=== PATIENT | female | born 1985 | race Caucasian/White ===

== ENCOUNTER 2019-03-31 23:07 | Emergency (ER) | payer OTHER, MEDICAID, SELFPAY ==
[2019-03-31 23:10] VITALS: BP 142/75; PULSE 53; RESP 20; TEMP 36.7; O2SAT 98; BMI 20.7
--- NOTE | 2019-03-31 23:17 | ED_ITS ---
HPI - Abdominal Pain General Chief Complaint: Abdominal Pain Stated Complaint: Abdominal Pain Time Seen by Provider: 03/31/19 23:14 Source: patient and family Mode of arrival: ambulatory Limitations: no limitations History of Present Illness HPI narrative: 33-year-old female nonsmoker with history of kidney stones and ovarian cyst presents with her in the chief complaint of sudden onset left lower quadrant pain that started a few hours ago. She denies any radiation of the pain but states it is made worse with any motion and improves with rest. She has nausea but denies vomiting. She denies any recent injury. She has had no fever or chills. She denies any dysuria, frequency or urgency. She denies any constipation or diarrhea. MD complaint: abdominal pain Onset (ago): hour(s) Pain Consistency: constant Location: LLQ Severity: moderate Quality: cramping, stabbing and aching Radiation: none Migration to: no migration Relieving factors: rest Exacerbating factors: movement Associated symptoms: nausea Related Data Previous Rx's Medication Instructions Recorded hydrocodone-acetaminophen 1 tab PO Q4-6H PRN #10 tab 04/01/19 ketorolac 10 mg PO Q6H PRN #14 tab 04/01/19 ondansetron 4 mg PO TID-QID PRN #10 tab 04/01/19 Allergies Allergy/AdvReac Type Severity Reaction Status Date / Time No Known Drug Allergies Allergy Unverified 02/22/19 14:52 Review of Systems Constitutional Constitutional: Denies chills, Denies fatigue, Denies fever(s), Denies frequent falls, Denies lethargy and Denies weakness Eyes Eyes: Denies change in vision, Denies eye discharge, Denies irritation and Denies loss of vision ENT Ears, Nose, Mouth, and Throat: Denies change in voice, Denies dizziness, Denies neck pain, Denies sore throat and Denies throat swelling Cardiovascular Cardiovascular: Denies chest pain, Denies irregular heart rhythm, Denies lightheadedness, Denies palpitations, Denies dyspnea, Denies dyspnea on exertion and Denies orthopnea Respiratory Respiratory: Denies cough, Denies dyspnea, Denies dyspnea on exertion and Denies wheezing Gastrointestinal Gastrointestinal: Reports abdominal pain, Denies change in bowel habits, Denies diarrhea, Reports nausea and Denies vomiting Genitourinary Genitourinary: Denies hematuria, Denies flank pain, Denies urinary incontinence and Denies urinary urgency Musculoskeletal Musculoskeletal: Denies back pain, Denies muscle weakness, Denies neck pain, Denies numbness and Denies tingling Integumentary/Breasts Skin/Breast: Denies pruritus, Denies erythema, Denies rash and Denies wounds Neurologic Neurologic: Denies behavioral changes, Denies confusion, Denies dizziness, Denies frequent falls, Denies loss of vision, Denies numbness, Denies tingling and Denies weakness Psychiatric Psychiatric: Denies anxiety, Denies behavioral changes, Denies confusion, Denies depression, Denies homicidal ideation and Denies suicidal ideation Endocrine Endocrine: Denies fatigue, Denies flushing and Denies palpitations Hematologic/Lymphatic Hematologic/Lymphatic: Denies easy bruising Allergic/Immunologic Allergic/Immunologic: Denies urticaria, Denies throat swelling and Denies wheezing PFSH Social History Smoking Status: Never smoker second hand exposure: No alcohol intake: current (wine 3 to 4 times a year.) substance use type: does not use Social History Smoking Status: Never smoker second hand exposure: No alcohol intake: current (wine 3 to 4 times a year.) substance use type: does not use Exam Narrative Exam Narrative: GENERAL: [33] year old patient appears stated age. Well-nourishe d, well-developed patient, in mild distress. Obviously uncomfortable, laying on her side and rubbing her flank HEAD: Atraumatic. Normocephalic. EYES: Pupils equal round and reactive. Extraocular motions intact. No scleral icterus. No injection or drainage. ENT: Nose without bleeding, purulent drainage. Throat without erythema, tonsillar hypertrophy or exudate. Airway patent. NECK: Trachea midline. Non tender CARDIOVASCULAR: Regular rate and rhythm without murmurs, gallops, or rubs. RESPIRATORY: Clear to auscultation. Breath sounds equal bilaterally. No wheezes, rales, or rhonchi. GASTROINTESTINAL: Abdomen soft, non-tender, nondistended. EXTREMITIES: No edema or joint tenderness. BACK: Nontender without deformity or crepitance. No flank tenderness. NEURO: AOx3. SKIN: No rash or erythema of visible areas Initial Vital Signs Initial Vital Signs: Vital Signs Temperature 98.1 F 03/31/19 23:10 Pulse Rate 53 L 03/31/19 23:10 Respiratory Rate 20 03/31/19 23:10 Blood Pressure 142/75 H 03/31/19 23:10 Pulse Oximetry 98 03/31/19 23:10 Course Orders Ordered: ED Orders 03/31/19 23:20 Basic Metabolic Panel Stat Complete Blood Count AUTO DIFF Stat 03/31/19 23:25 US pelvic complete Stat 04/01/19 02:15 CT abdomen pelvis w con Stat Discontinued Medications Hydromorphone HCl (Dilaudid) 1 mg IV NOW ONE Stop: 04/01/19 00:09 Last Admin: 04/01/19 00:11 Dose: 1 mg Documented by: GALLITO Hydromorphone HCl (Dilaudid) 1 mg IV NOW ONE Stop: 04/01/19 02:16 Last Admin: 04/01/19 02:20 Dose: 1 mg Documented by: GALLITO Sodium Chloride (Normal Saline 0.9%) 1,000 mls @ 1,000 mls/hr IV BOLUS ONE Stop: 04/01/19 00:24 Last Infusion: 04/01/19 00:38 Dose: 0 mls/hr Documented by: Admin: 03/31/19 23:35 Dose: 1,000 mls/hr Documented by: GALLITO Ketorolac Tromethamine (Toradol) 15 mg IV NOW ONE Stop: 03/31/19 23:26 Last Admin: 03/31/19 23:34 Dose: 15 mg Documented by: GALLITO Ondansetron HCl (Zofran) 4 mg IV NOW ONE Stop: 03/31/19 23:42 Last Admin: 03/31/19 23:43 Dose: 4 mg Documented by: GALLITO Reevaluation(s) Reevaluation #1: Minimal improvement with Toradol, tremendous, near complete resolution with Dilaudid Vital Signs Vital signs: Vital Signs - 8 hr 03/31/19 23:10 04/01/19 02:20 Temperature 98.1 F Pulse Rate 53 L 63 Respiratory Rate 20 Blood Pressure 142/75 H Blood Pressure [Right Arm] 123/55 L Pulse Oximetry 98 98 MDM - Abdominal Pain Lab Data Result diagrams: 03/31/19 23:20 03/31/19 23:20 Labs: Lab Results 03/31/19 03/31/19 Range/Units 23:20 23:20 WBC 8.9 (4.5-11.0) X10^3/uL RBC 4.54 (4.0-5.2) X10^6/uL Hgb 13.4 (12.0-16.0) g/dL Hct 39.3 (36-46) % MCV 86.5 (80-100) fL MCH 29.5 (26-34) PG MCHC 34.1 (30-36) % RDW 12.9 (11.6-14.8) % Plt Count 210 (150-400) X10^3/uL Neut % (Auto) 52.8 (50-75) % Lymph % (Auto) 30.9 (25-40) % [place] % (Auto) 13.2 (3-14) % Eos % (Auto) 2.3 (2-4) % Baso % (Auto) 0.8 (0-2) % Neut # (Auto) 4700 (5799-0935) /uL Lymph # (Auto) 2800 (4562-1064) /uL [place] # (Auto) 1200 H (0-900) /uL Eos # (Auto) 200 (0-450) /uL Baso # (Auto) 100 (0-100) /uL Sodium 137 (137-145) mmol/L Potassium 4.0 (3.4-5.1) mmol/L Chloride 102 (98-107) mmol/L Carbon Dioxide 26 (22-32) mmol/L BUN 14 (7-17) mg/dL Creatinine 0.80 (0.52-1.04) mg/dL Estimated GFR > 60.0 (>60) mL/min BUN/Creatinine Ratio 17.5 (6-22) Glucose 109 H (70-100) mg/dL Calcium 9.5 (8.4-10.2) mg/dL Point of care testing: Point of Care Testing Test Results Negative Urine Dip Bedside Urine Glucose Negative Bedside Urine Bilirubin - Negative Bedside Urine Ketone +++ 80 Urine Specific [place] 1.025 Bedside Urine Occult Blood - Negative Bedside Urine pH 6.0 Bedside Urine Protein - Negative Bedside Urine Urobilinogen - Negative Bedside Urine Nitrite - Negative Bedside Urine Leukocytes - Negative Esterase Imaging Data US - abdomen: Attestation: I personally reviewed and interpreted this imaging study as follows: Radiologist's impression: possible R side ovarian cyst CT scan - abdomen: Radiologist's impression: Prominent veins in the lower pelvis long uterus and adnexa suggesting pelvic congestion syndrome Discharge Plan Departure Patient Disposition: Home Clinical Impression: Pelvic pain, 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 Let them know you were seen in the Emergency Department and that we ask that you be seen in follow up *Return to ER if you should have any new, worsening or concerning symptoms, such as [ ] Prescriptions: New hydrocodone-acetaminophen 5-325 mg tablet 1 tab PO Q4-6H PRN (Reason: pain) Qty: 10 RF: 0 ketorolac 10 mg tablet 10 mg PO Q6H PRN (Reason: pain) Qty: 14 RF: 0 ondansetron 4 mg tablet,disintegrating 4 mg PO TID-QID PRN (Reason: nausea and vomiting) Qty: 10 RF: 0 Referrals: Leeanna Em PA-C [Primary Care Provider] - Leonard Tellez MD [Physician] -
--- NOTE | 2019-03-31 23:25 | DI.US.S_ITS ---
PROCEDURE: US PELVIC COMPLETE INDICATIONS: LEFT LOWER QUADRANT PAIN TECHNIQUE: Real-time scanning was performed of the pelvic organs, with image documentation. Additional endovaginal scanning was necessary due to incomplete visualization of the adnexal and endometrial structures by transabdominal scanning. COMPARISON: None. FINDINGS: Transabdominal scanning: Limited scanning through the kidneys shows no hydronephrosis. No pathologic free abdominal or pelvic fluid. Endovaginal scanning: Uterus: Uterus is normal in size at 7.2 x 4.6 x 3.2 cm. The endometrium measures 9 mm in combined thickness. No myometrial lesion is evident. No significant fluid is seen within the endometrium. The cervix is within normal limits. Ovaries: The right ovary is mildly enlarged and measures 3.6 x 3.0 x 2.7 cm. There is a thickwalled irregular cystic structure containing low level internal echoes that measures up to approximately 2.2 cm within the right ovary. Mild increased peripheral vascularity is present. Blood flow is demonstrated to the right ovary, which demonstrates a normal arterial Doppler waveforms. The left ovary is within normal limits and measures 2.2 x 1.8 x 1.8 cm. No cystic or solid left ovarian abnormality is appreciated. Blood flow is demonstrated to the left ovary. Small follicles of the left ovary are present. IMPRESSION: 1. Collapsing small hemorrhagic right ovarian cyst. 2. Unremarkable left ovary and uterus. Note: The preliminary report provided by [facility]. is concordant with the final report. Dictated by: Yunior Howe M.D. on 04/01/2019 at 7:18 Approved by: Yunior Howe M.D. on 04/01/2019 at 7:21
[2019-03-31 23:33] LABS: Add Manual Diff / Slide Review NO; Basophils Absolute Auto 100 /uL (0-100); Basophils Percent Auto 0.8 % (0-2); Eosinophils Absolute Auto 200 /uL (0-450); Eosinophils Percent Auto 2.3 % (2-4); Hematocrit 39.3 % (36-46); Hemoglobin 13.4 g/dL (12.0-16.0); Lymphocytes Absolute Auto 2800 /uL (1100-4500); Lymphocytes Percent Auto 30.9 % (25-40); Mean Corpuscular HGB Conc 34.1 % (30-36); Mean Corpuscular Hemoglobin 29.5 PG (26-34); Mean Corpuscular Volume 86.5 fL (80-100); Monocytes Absolute Auto 1200 /uL (0-900); Monocytes Percent Auto 13.2 % (3-14); Neutrophils Absolute Auto 4700 /uL (1500-7000); Neutrophils Percent Auto 52.8 % (50-75); Platelet Count 210 X10^3/uL (150-400); Red Blood Cell Count 4.54 X10^6/uL (4.0-5.2); Red Cell Distribution Width 12.9 % (11.6-14.8); White Blood Cell Count 8.9 X10^3/uL (4.5-11.0)
[2019-03-31] MEDS: KETOROLAC 60 MG/2 ML VIAL 15 MG IV (23:34)
[2019-03-31] MEDS: SODIUM CHLORIDE 0.9% 1,000 ML 1000 ML IV (23:35)
[2019-03-31 23:42] LABS: BUN Creatinine Ratio 17.5 (6-22); Blood Urea Nitrogen 14 mg/dL (7-17); Calcium 9.5 mg/dL (8.4-10.2); Carbon Dioxide 26 mmol/L (22-32); Chloride 102 mmol/L (98-107); Estimated Glomerular Filt Rate > 60.0 mL/min (>60); Glucose 109 mg/dL (70-100); HEMOLYSIS < 15 (0-50); Sodium 137 mmol/L (137-145)
[2019-03-31] MEDS: ONDANSETRON 4 MG/2 ML INJ IV (23:43)
[2019-04-01] MEDS: HYDROMORPHONE 1 MG INJ IV ×2 (00:11→02:20)
--- NOTE | 2019-04-01 02:15 | DI.CT.S_ITS ---
PROCEDURE: CT ABDOMEN PELVIS W CON INDICATIONS: severe left lower quadrant pain TECHNIQUE: After the administration of oral and intravenous contrast, 5 mm thick sections acquired from the diaphragms to the symphysis. 5 mm thick coronal and sagittal reformats were performed. For radiation dose reduction, the following was used: automated exposure control, adjustment of mA and/or kV according to patient size. COMPARISON: [facility], US, US PELVIC COMPLETE, 04/01/2019, 0:26. [facility], CT, KIDNEY/ URETER/BLADDER, 04/19/2015, 16:45. FINDINGS: Image quality: Diagnostic. ABDOMEN: Lung bases: Lung bases are clear. Heart size is normal. Solid organs: Liver is normal in size and enhancement. Gallbladder is not enlarged or inflamed. Biliary system is non-dilated. Pancreas enhances normally. Spleen is normal in size and enhancement. No adrenal nodules. Kidneys are normal in size and enhancement, without hydronephrosis. Peritoneum and bowel: The stomach is decompressed. The small bowel loops are not significantly dilated. However, there are patchy areas of wall thickening involving the jejunum. Fluid is seen within the ileum. Diffuse small bowel wall enhancement is identified The appendix is well-visualized and normal in size without surrounding inflammation (image 52, series 2). There is a large amount of stool identified throughout the colon that is more prominent through the proximal colon. The portion of the sigmoid colon is noted to be decompressed Nodes and vessels: No retroperitoneal or mesenteric adenopathy. Aorta and inferior vena cava are normal in caliber. Bones: No acute fracture or suspicious osseous lesion is evident. There may be mild degenerative changes of the facet joints at the lumbosacral junction. PELVIS: Soft tissues: Bladder wall thickness is normal. The uterus and ovaries do not appear to be enlarged. No inguinal hernias or adenopathy. No free fluid or loculated fluid collection is evident. Bones: No suspicious bony lesions. No acute pelvic fracture is evident. IMPRESSION: 1. Wall enhancement of the small bowel with patchy areas of wall thickening is nonspecific, but may be seen in the setting of enteritis and clinical correlation is recommended. 2. Large amount of stool within the colon is suggestive of constipation. The sigmoid colon appears decompressed, which may be related to lack of intraluminal stool. However, a sigmoid lesion or potentially sigmoid volvulus is difficult to exclude. If the patient's symptoms persist, please consider followup CT imaging with rectal contrast. Dictated by: Yunior Howe M.D. on 04/01/2019 at 8:28 Approved by: Yunior Howe M.D. on 04/01/2019 at 8:38
[2019-04-01 02:20] VITALS: BP 123/55; PULSE 63; O2SAT 98
[2019-04-01] MEDS: HYDROCODONE/ACET 5/325 PREPACK 1 BOTTLE MISC (03:58)
[2019-04-01 03:59] VITALS: BP 111/62; PULSE 50; RESP 16; O2SAT 98
[2019-04-01] MEDS: ONDANSETRON 4 MG ODT PREPACK 1 BOTTLE MISC (03:59)
== END 2019-04-01 03:59 | disposition home or self-care (01) ==
PROVIDERS: Emergency Provider Emergency Medicine; PCP Physician Assistant
DX: R10.2 Pelvic and perineal pain (principal); N94.89 Other specified conditions associated with female genital organs and menstrual cycle
CPT/HCPCS: 36591; 74177; 76830; 76856; 80048; 81003; 81025; 85025; 96361; 96374; 96375; 96376; 99283; 99285; J1170; J1885; J2405; Q9967

== ENCOUNTER → 2019-04-07 14:48 | Outpatient (CLI) | payer OTHER, MEDICAID, SELFPAY ==
[2019-04-07 17:06] LABS: Hepatitis B Surface Antigen NEGATIVE s/c (NEGATIVE)
[2019-04-07 17:20] LABS: HIV 1 & 2 Ab/Ag 4th Gen Combo NEGATIVE (NEGATIVE); Hep C Virus Ab w/Reflex Quant NEGATIVE s/c (NEGATIVE)
[2019-04-07 18:27] LABS: Urine N gonorrhoeae NOT DETECTED
[2019-04-07 18:29] LABS: Urine Chlamydia NOT DETECTED
[2019-04-11 14:33] LABS: HSV 2 IgM Screen Positive (Negative)
[2019-04-11 16:01] LABS: RPR Screen NONREACTIVE
[2019-04-11 16:19] LABS: HSV 1 IgM Screen Positive (Negative)
== END ==
PROVIDERS: PCP Physician Assistant; Visit Provider Nurse Practitioner Family
DX: Z20.2 Contact with and (suspected) exposure to infections with a predominantly sexual mode of transmission (principal)
CPT/HCPCS: 36415; 86592; 86695; 86696; 86803; 87210; 87340; 87389; 87491; 87591

== ENCOUNTER → 2019-09-20 13:12 | Outpatient (CLI) | payer OTHER, MEDICAID, SELFPAY ==
[2019-09-20 14:03] LABS: Appearance Urine UA CLEAR; Bilirubin Urine UA NEGATIVE (NEGATIVE); Color Urine UA YELLOW; Glucose Urine UA NEGATIVE (Negative); Ketones Urine UA NEGATIVE (NEGATIVE); Leukocyte Esterase Urine UA 1+ (NEGATIVE); Nitrite Urine UA NEGATIVE (Negative); Occult Blood Urine UA NEGATIVE (Negative); Protein Urine UA NEGATIVE (Negative); Urobilinogen Urine UA 0.2 E.U./dL (0.2)
[2019-09-20 14:28] LABS: Add Manual Diff / Slide Review NO; Basophils Absolute Auto 0 /uL (0-100); Basophils Percent Auto 0.4 % (0-2); Eosinophils Absolute Auto 200 /uL (0-450); Eosinophils Percent Auto 1.5 % (2-4); Hematocrit 38.8 % (36-46); Hemoglobin 13.1 g/dL (12.0-16.0); Lymphocytes Absolute Auto 2200 /uL (1100-4500); Lymphocytes Percent Auto 19.3 % (25-40); Mean Corpuscular HGB Conc 33.9 % (30-36); Mean Corpuscular Volume 88.3 fL (80-100); Monocytes Absolute Auto 800 /uL (0-900); Monocytes Percent Auto 7.2 % (3-14); Neutrophils Absolute Auto 8100 /uL (1500-7000); Neutrophils Percent Auto 71.6 % (50-75); Platelet Count 238 X10^3/uL (150-400); Red Blood Cell Count 4.39 X10^6/uL (4.0-5.2); Red Cell Distribution Width 13.3 % (11.6-14.8); White Blood Cell Count 11.3 X10^3/uL (4.5-11.0)
[2019-09-20 14:34] LABS: Bacteria Urine Moderate (10-30); RBC Urine 0-1/HPF (0-5/HPF); Squamous Epithelial Cell Urine 0-1 /HPF (0-5/HPF); WBC Urine 1-5/HPF (0-5/HPF); pH Urine UA 5.5 (4.5-8.0)
[2019-09-20 16:38] LABS: Hepatitis B Surface Antigen NEGATIVE s/c (NEGATIVE); Rubella Antibody IgG 12.4 IU/mL (>15)
[2019-09-20 16:54] LABS: HIV 1 & 2 Ab/Ag 4th Gen Combo NEGATIVE (NEGATIVE); Hep C Virus Ab w/Reflex Quant NEGATIVE s/c (NEGATIVE)
[2019-09-22 20:36] LABS: RPR Screen Nonreactive (Nonreactive)
== END ==
PROVIDERS: PCP Family Medicine; Referring Provider Obstetrics & Gynecology; Visit Provider Obstetrics & Gynecology
DX: Z34.81 Encounter for supervision of other normal pregnancy, first trimester (principal)
CPT/HCPCS: 36415; 80055; 81003; 81015; 86787; 86803; 86850; 86900; 86901; 87077; 87086; 87389

== ENCOUNTER → 2019-10-25 12:20 | Outpatient (CLI) | payer OTHER, MEDICAID, SELFPAY | PROVIDERS: PCP Family Medicine; Referring Provider Obstetrics & Gynecology; Visit Provider Obstetrics & Gynecology | DX: O09.521 Supervision of elderly multigravida, first trimester (principal) | CPT/HCPCS: 36415; 81420 ==

== ENCOUNTER → 2019-12-22 11:25 | Outpatient (CLI) | payer OTHER, MEDICAID, SELFPAY ==
--- NOTE | 2019-12-22 11:26 | DI.US.S_ITS ---
PROCEDURE: US OB >= 14 WEEKS FETUS INDICATIONS: 20 WEEK ANATOMY SCAN OUTSIDE/PRIOR DATING DATA: Last menstrual period (LMP): 07/30/19. LMP-based estimated date of delivery (MIRTA): 05/05/20. First dating scan (date and location): 09/29/19. Estimated date of delivery (MIRTA) from first dating scan: 05/04/20. TECHNIQUE: Real-time scanning was performed of the fetus, with image documentation and biometric measurements. Endovaginal scanning: Not needed COMPARISON: [facility], , OB <= 14 WEEKS FETUS, 09/29/2019, 12:08. [facility], , OB >= 14 WEEKS FETUS, 12/06/2019, 11:41. FINDINGS: General: A single living intrauterine gestation is present. Presentation: Breech. Placenta: Placental position is anterior, without previa. Amniotic fluid index: 16.2 cm, normal range is 5-24 cm. heart rate: 141 beats per minute. Maternal cervical canal: 3.1 cm long. Normal lower limit is 2.5 cm. biometrics: Biparietal diameter: 4.8 cm, 20 weeks 3 days Head circumference: 17.8 cm, 20 weeks 2 days Abdominal circumference: 14.7 cm, 20 weeks 0 days Femur length: 3.2 cm, 20 weeks 0 days Estimated gestational age from initial scan: 20 weeks 6 days Composite gestational age from present scan: 20 weeks 1 day Estimated weight and percentile: 330 g, 12 percentile Measurement variability for biometric dating: +/- 7 days from 14 weeks to 15 weeks 6 days gestation, +/- 10 days from 16 weeks to 21 weeks 6 days gestation, +/- 2 weeks from 22 weeks to 27 weeks 6 days gestation, +/- 3 weeks for 28 weeks gestation or later. weight reference: 4500 g or EFW >90/95% is considered macrosomia or large for gestational age. EFW <10% is small for gestational age. EFW 5% or less is considered intra-uterine growth restriction. Anatomic survey: Neuro: Ventricles are non-dilated at less than 10 mm. Cisterna magna is normal at 3-11 mm. Cerebellum is normal in size and morphology. Nuchal skin fold: Normal at less than 6 mm between 14-21 weeks gestational age. Face: Nose and lips, facial profile are normal. Spine: No evidence for spina bifida. Heart: 4-chambered heart is present, with normal ventricular outflow tracts. Diaphragm: Diaphragm is intact. Stomach: Left-sided stomach is present. Kidneys: No hydronephrosis. Normal is less than 5 mm in 2nd trimester, less than 7 mm in 3rd trimester. Cord: 3-vessel cord has orthotopic insertion. Bladder: Normal in size. Extremities: All 4 extremities identified. IMPRESSION: Appropriate interval growth, no anomaly seen. The delivery date is projected to be centered on 05/04/20. Breech presentation at this time. Dictated by: Santiago Sarmiento M.D. on 12/22/2019 at 14:47 Approved by: Santiago Sarmiento M.D. on 12/22/2019 at 14:50
== END ==
PROVIDERS: PCP Family Medicine; Referring Provider Obstetrics & Gynecology; Visit Provider Obstetrics & Gynecology
DX: Z34.82 Encounter for supervision of other normal pregnancy, second trimester (principal); Z3A.20 20 weeks gestation of pregnancy
CPT/HCPCS: 76811

== ENCOUNTER → 2020-01-03 10:58 | Outpatient (CLI) | payer OTHER, MEDICAID, SELFPAY ==
[2020-01-04 06:10] LABS: Candida species Positive (Negative); Gardnerella vaginalis Positive (Negative); Trichomoas vaginalis Negative (Negative)
== END ==
PROVIDERS: PCP Family Medicine; Visit Provider Obstetrics & Gynecology
DX: O26.899 Other specified pregnancy related conditions, unspecified trimester (principal); N89.8 Other specified noninflammatory disorders of vagina; Z3A.22 22 weeks gestation of pregnancy
CPT/HCPCS: 87480; 87510; 87660

== ENCOUNTER → 2020-01-22 14:41 | Outpatient (CLI) | payer OTHER, MEDICAID, SELFPAY ==
--- NOTE | 2020-01-22 14:43 | DI.US.S_ITS ---
PROCEDURE: US OB LIMITED INDICATIONS: CERVICAL LENGTH OUTSIDE/PRIOR DATING DATA: Last menstrual period (LMP): 07/30/19. LMP-based estimated date of delivery (MIRAT): 05/05/20. First dating scan (date and location): 09/29/19. Estimated date of delivery (MIRTA) from first dating scan: 05/04/20. TECHNIQUE: Real-time scanning was performed of the fetus, with image documentation and biometric measurements. Endovaginal scanning: No COMPARISON: [facility], OB >= 14 WEEKS FETUS, 12/22/2019, 11:38. FINDINGS: General: A single living intrauterine gestation is present. Presentation: Breech Placenta: Placental position is anterior, without previa. Amniotic fluid index: 13.8 cm cm, normal range is 5-24 cm. heart rate: 131 beats per minute. Maternal cervical canal: 3.6 cm long. Normal lower limit is 2.5 cm. IMPRESSION: Single living IUP redemonstrated and cervical length is normal at 3.6 cm. Dictated by: Tristen Dean [facility] Interpreted: Bri Corral MD on 01/22/2020 at 15:26 Approved by: Bri Corral M.D. on 01/22/2020 at 17:44
== END ==
PROVIDERS: PCP Family Medicine; Referring Provider Obstetrics & Gynecology; Visit Provider Obstetrics & Gynecology
DX: Z36.86 Encounter for antenatal screening for cervical length (principal); Z3A.25 25 weeks gestation of pregnancy
CPT/HCPCS: 76815

== ENCOUNTER → 2020-02-07 10:31 | Outpatient (CLI) | payer OTHER, MEDICAID, SELFPAY ==
[2020-02-07 12:27] LABS: GTT (PREG) 1 Hour PP 50gm Dose 86 mg/dL (76-139)
[2020-02-07 12:30] LABS: Hematocrit 36.6 % (36-46); Hemoglobin 12.7 g/dL (12.0-16.0)
== END ==
PROVIDERS: PCP Family Medicine; Referring Provider Obstetrics & Gynecology; Visit Provider Obstetrics & Gynecology
DX: Z34.82 Encounter for supervision of other normal pregnancy, second trimester (principal); Z3A.22 22 weeks gestation of pregnancy
CPT/HCPCS: 82950; 85014; 85018

== ENCOUNTER 2020-03-05 17:50 | Outpatient (CLI) | payer OTHER, MEDICAID, SELFPAY ==
[2020-03-05 18:49] LABS: Bacteria Urine None Seen
[2020-03-05 18:50] LABS: Appearance Urine UA CLEAR; Bilirubin Urine UA NEGATIVE (NEGATIVE); Color Urine UA YELLOW; Glucose Urine UA NEGATIVE (Negative); Ketones Urine UA NEGATIVE (NEGATIVE); Leukocyte Esterase Urine UA NEGATIVE (NEGATIVE); Nitrite Urine UA NEGATIVE (Negative); Occult Blood Urine UA NEGATIVE (Negative); Protein Urine UA NEGATIVE (Negative); Specific Gravity Urine UA <=1.005 (1.000-1.035); Urobilinogen Urine UA 0.2 E.U./dL (0.2)
[2020-03-05 18:57] LABS: Culture Indicated Urine Cult Not Indicated; RBC Urine 0-1/HPF (0-5/HPF); Squamous Epithelial Cell Urine 0-1 /HPF (0-5/HPF); WBC Urine 0-1/HPF (0-5/HPF)
== END 2020-03-05 18:45 | disposition home or self-care (01) ==
LOC: LABOR 18:36 → OB 03-06 16:20
PROVIDERS: PCP Family Medicine; Referring Provider Obstetrics & Gynecology; Visit Provider Obstetrics & Gynecology
DX: O09.523 Supervision of elderly multigravida, third trimester (principal); N89.8 Other specified noninflammatory disorders of vagina; Z3A.31 31 weeks gestation of pregnancy
CPT/HCPCS: 59025; 81001; 84112; G0378; G0379

== ENCOUNTER → 2020-03-11 11:58 | Outpatient (CLI) | payer OTHER, MEDICAID, SELFPAY ==
[2020-03-13 07:13] LABS: Candida species Negative (Negative); Gardnerella vaginalis Negative (Negative); Trichomoas vaginalis Negative (Negative)
== END ==
PROVIDERS: PCP Family Medicine; Visit Provider Obstetrics & Gynecology
DX: O26.899 Other specified pregnancy related conditions, unspecified trimester (principal); N89.8 Other specified noninflammatory disorders of vagina; Z3A.32 32 weeks gestation of pregnancy
CPT/HCPCS: 87480; 87510; 87660

== ENCOUNTER → 2020-04-11 15:47 | Outpatient (ROUT) | payer OTHER, MEDICAID, SELFPAY | PROVIDERS: PCP Family Medicine; Visit Provider Nurse Practitioner Obstetrics & Gynecology | DX: Z34.90 Encounter for supervision of normal pregnancy, unspecified, unspecified trimester (principal); Z36.85 Encounter for antenatal screening for Streptococcus B; Z3A.36 36 weeks gestation of pregnancy | CPT/HCPCS: 87081 ==

== ENCOUNTER 2020-04-14 08:50 | Outpatient (CLI) | payer OTHER, MEDICAID, SELFPAY ==
--- NOTE | 2020-04-14 09:03 | P.TNLD_ITS ---
Visit Information Visit Information Date of evaluation: 04/14/20 Primary OB Provider: Magdalene Bro On-call OB Provider: Kitty Hu Reason for Evaluation: Yes rupture of membranes Comments/Additional reasons for admission: 34YO @37wks by early US presents for evaluation of PROM. Copious amounts of clear fluid has been draining since 8am. +FM. Has only felt 2, mild contractions since water broke. No vaginal bleeding. Uncomplicated PN care w/ CNM, transferred into [facility] @ 34wks from [facility]. Desires low intervention . 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) Pelvic somatic dysfunction (Acute) Segmental and somatic dysfunction of lower extremity (Acute) Segmental and somatic dysfunction of lumbar region (Acute) Segmental and somatic dysfunction of sacral region (Acute) Short leg syndrome, left, acquired (Acute) (spontaneous vaginal delivery) (Acute) Surgical History [place] teeth extracted (Acute) Family History Mother Sarcoidosis Father Unknown whether patient has any health problems Grandfather Menieres disease Pituitary tumor Grandmother Skin cancer (melanoma) Family/Other Skin cancer (melanoma) Brother Anxiety Social History marital status: unmarried,single education level: college occupational status: employed current occupational exposures/hazards: No special kirill needs: No Smoking Status: Never smoker second hand exposure: No alcohol intake: current substance use type: does not use Review of Systems Review of Systems ROS: Yes All systems reviewed with the patient and are negative except as otherwise documented Exam Vital Signs (past 8 hours): see above OB/External & Speculum: deferred Presentation: vertex Estimated Weight (lbs): 5 Amniotic Fluid: clear Evaluation Evaluation Baseline heart rate: 135 Variability: Average (6-10) monitor accelerations: Present monitor decelerations: Absent Contraction Frequency (minutes): 6 Uterine Contraction Intensity: Mild Category of Tracing: Reactive Comments: CE deferred as patient is not bruce uncomfortably Diagnosis, Plan/Disposition Final Diagnosis (1) Rubella non-immune status, antepartum: Status: Acute (2) HSV-2 infection: Status: Acute Problem details: Tested positive on 04/07/19 (3) Premature rupture of membranes: Status: Acute Problem details: Counseled on options for active vs expectant management of PROM. Pt elects expectant management. Counseled on warning sx to return. pt unsure if she will return at 12 or 24 hours, will let me know. (4) 37 weeks gestation of : Status: Acute
[2020-04-14 09:46] LABS: COVID19 -Nasal RAPID Negative (Negative)
== END 2020-04-14 10:05 | disposition home or self-care (01) ==
LOC: OB 04-16 15:04
PROVIDERS: PCP Family Medicine; Referring Provider Nurse Practitioner Obstetrics & Gynecology; Visit Provider Nurse Practitioner Obstetrics & Gynecology
DX: O42.92 Full-term premature rupture of membranes, unspecified as to length of time between rupture and onset of labor (principal); O09.523 Supervision of elderly multigravida, third trimester; O98.513 Other viral diseases complicating pregnancy, third trimester; Z3A.37 37 weeks gestation of pregnancy
CPT/HCPCS: 59025; 87635; G0378; G0379

== ENCOUNTER 2020-04-14 19:09 | Inpatient (IN) | payer OTHER, MEDICAID, SELFPAY ==
--- NOTE | 2020-04-14 19:19 | PM.OBHP.1 ---
OB HPI Date/Time Date of admission: 04/14/20 Date Patient Seen: 04/14/20 Time Patient Seen: 18:55 History of Present Condition Chief complaint: EVAL OF LABOR : 2 Para: 1 Estimated Date of Delivery: 05/05/20 Estimated Gestational Age (weeks): 37.0 Narrative: Antonella Paulson is a 34 year old female @37wks by early US. PROM, clear fluid, occurred @ 0800. Patient was evaluated and chose elective management this morning and went back home. Contractions slowly progressed in frequency and intensity, breathing through them since 1600. History of Present care: good care and pounds weight gain (29) Dating criteria: based on 1st trimester US only Ultrasounds: normal mid trimester US Obstetrical complications: none Medical complications: none Preadmission Labs Blood type: O (+) positive -: Antibody screen: negative, GBS status: negative, HBsAG: negative, HSV 1: positive, HSV 2: positive and RPR/VDLR: negative -: Chlamydia screen: not detected and Gonorrhea screen: not detected -: Rubella: equivocal HCT: 36.6 HCAB: negative 1 hr GTT: 86 Prior (ies) History: 07/28/14-NSVB @40.1wks, 1st degree epis, male, 7#3oz, epidural Evaluation Evaluation Baseline heart rate: 135 Variability: Moderate (11-25) monitor accelerations: Present monitor decelerations: Variable (single) Contraction Frequency (minutes): 4 Uterine Contraction Intensity: Moderate Category of Tracing: Reactive Cervical dilation (cm): 5 Cervical effacement (%): 90 station: -1 [facility] Medical History Closed fracture of distal phalanx of left little finger (Acute) Depression (Acute) 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) Pelvic somatic dysfunction (Acute) Segmental and somatic dysfunction of lower extremity (Acute) Segmental and somatic dysfunction of lumbar region (Acute) Segmental and somatic dysfunction of sacral region (Acute) Short leg syndrome, left, acquired (Acute) (spontaneous vaginal delivery) (Acute) Surgical History [place] teeth extracted (Acute) Family History Mother Sarcoidosis Father Unknown whether patient has any health problems Grandfather Menieres disease Pituitary tumor Grandmother Skin cancer (melanoma) Family/Other Skin cancer (melanoma) Brother Anxiety Social History marital status: unmarried,single education level: college occupational status: employed current occupational exposures/hazards: No special kriill needs: No Smoking Status: Never smoker second hand exposure: No alcohol intake: current substance use type: does not use Meds Home Medications and Allergies Home Medications Medication Instructions Recorded Confirmed Type valacyclovir 1 gram tablet 2,000 mg PO BID #4 tab 04/07/19 02/27/20 Rx prenat.vits,tobias,ifs-rmkv-ejnhm 1 tab PO DAILY 09/20/19 02/27/20 History krill oil 500 mg capsule mg PO 10/05/19 02/27/20 History lactobacillus combination no.8 3 3,000 mmu cells PO DAILY 10/05/19 02/27/20 History billion cell capsule ondansetron 4 mg disintegrating 4 mg PO Q6H PRN #20 tab 10/16/19 02/27/20 Rx tablet Allergies Allergy/AdvReac Type Severity Reaction Status Date / Time No Known Drug Allergies Allergy Verified 02/27/20 15:53 Review of Systems Review of Systems ROS: Yes All systems reviewed with the patient and are negative except as otherwise documented Exam Vital Signs (past 8 hours): BP 122/79, HR 65bpm, T36.3C Temporal Assessment and Plan Assessment and Plan Assessment and Plan narrative: Term multipara @ 37wks, Active labor, HSV2 on prophylaxis, GBS neg, Cat I FHR P: Admit, routine labor orders w/ SL IV, CBC & T&S. Labor support PRN. May switch to intermittent auscultation. Reassess in 4 hours or sooner, PRN.
[2020-04-14 20:28] LABS: Add Manual Diff / Slide Review NO; Basophils Absolute Auto 100 /uL (0-100); Basophils Percent Auto 0.9 % (0-2); Eosinophils Absolute Auto 100 /uL (0-450); Eosinophils Percent Auto 0.8 % (2-4); Hematocrit 41.6 % (36-46); Hemoglobin 14.3 g/dL (12.0-16.0); Lymphocytes Absolute Auto 2600 /uL (1100-4500); Lymphocytes Percent Auto 19.2 % (25-40); Mean Corpuscular HGB Conc 34.4 % (30-36); Mean Corpuscular Hemoglobin 30.4 PG (26-34); Mean Corpuscular Volume 88.4 fL (80-100); Monocytes Absolute Auto 1000 /uL (0-900); Monocytes Percent Auto 7.1 % (3-14); Neutrophils Absolute Auto 9900 /uL (1500-7000); Platelet Count 151 X10^3/uL (150-400); Red Blood Cell Count 4.71 X10^6/uL (4.0-5.2); Red Cell Distribution Width 12.7 % (11.6-14.8); White Blood Cell Count 13.7 X10^3/uL (4.5-11.0)
--- NOTE | 2020-04-14 23:02 | PM.OBPNLAB ---
Date/Time Date Patient Seen: 04/14/20 Time Patient Seen: 23:00 Pain Control Pain control: other Comments: Patient is breathing through and moaning with contractions. Has been coping well up until now, stating she's not sure she can do this, but not requesting interventions. VS: BP 122/58, [id number], RR18/min, T36.3C Temporal Pelvic Exam Dilation (cm): 7 Effacement (%): 90 station: 0 Amniotic membrane status: Leaking Contractions Contractions on admission: regular Monitor mode: Palpation Pitocin rate (mU/min): 0 Contraction frequency (min): 4 Contraction duration (min): 1 Contraction pattern: Regular Contraction intensity: Strong/Firm Status status: Category l Heart Rate Baseline: 135 Comments: FHR has been reassuring by intermittent auscultation, regular rate without decreases. Assessment and Plan Assessment: active labor Plan: continuous present management Comments: Continuous labor support. reassess in 2-4 hours or sooner, PRN. Anticipate NSVB.
--- NOTE | 2020-04-15 00:15 | PM.OBPRVD ---
Events: Premature Rupture of Membrane (ROM <16 hours) Labor & Delivery Delivery date: 04/15/20 Intrapartal events: None Cervical ripening method: none Induction method: none Delivery monitor: external FHT and external uterine Route of delivery: L&D Laceration Description: Vaginal - 1st Degree Delivery repair: chromic (4.0) Estimated blood loss (mL): 50 Anesthesia type: None Narrative: Patient requested epidural shortly after last exam. Patient began to feel spontaneous urge to push during IV placement and was when anesthesia arrived. NSVB of a vigorous baby girl in NALDO position w/ a single loose NC and true know in the cord. The shoulders delivered without additional maneuvers. [place] was placed on maternal abdomen for drying and skin to skin. After cessation of pulsation, the cord was double clamped by CNM and cut by FOB. 30 units of pitocin in 500mL LR was started at 300mL/hr for AMTSL. Hospital cord blood hold sample was collected. Gentle cord traction led to spontaneous, Schultze delivery of an apparently intact placenta, membranes and 3VC. Fundus immediately firm and bleeding minimal. A small 1st degree vaginal laceration was repaired w/ 4.0 chromic in the usual fashion, under 1% lidocaine local anesthesia for good approximation and hemostasis. QBL 50mL. Both mother and baby stable and skin to skin as I left the room. [place] Baby 1: gender: Female Presentation: vertex Placenta delivery description: Spontaneous cord vessel description: Loose score (1 min): 8 score (5 min): 8 Plan for aftercare: Routine PP orders. Anticipate d/c to home in 18-24 hours.
[2020-04-15] MEDS: KETOROLAC 30 MG/ML VIAL IV (01:09)
[2020-04-15] MEDS: ACETAMINOPHEN 325 MG TABLET 650 MG PO ×2 (01:10→17:50)
[2020-04-15] MEDS: OXYCODONE IR 5 MG TABLET PO ×2 (03:02→06:53)
[2020-04-15 05:51] VITALS: BP 135/50
[2020-04-15] MEDS: IBUPROFEN 600 MG TABLET PO ×2 (07:46→13:22)
[2020-04-15] MEDS: DOCUSATE 100 MG CAPSULE PO (07:47)
[2020-04-15] MEDS: PRENATAL VIT,CALC/IRON/FOLIC 1 TABLET 1 TAB PO (07:47)
[2020-04-15 11:46] VITALS: BP 119/71; PULSE 64; RESP 16; TEMP 36.6
--- NOTE | 2020-04-15 11:52 | PM.OBDS.1 ---
Discharge Providers Provider Date of admission: 04/14/20 19:09 Discharge Date: 04/15/20 Primary care physician: Austin Lee DO Consults: 04/16/20 00:13 Consult to Edi Coordinator Routine Comment: Discharge provider: Magdalene Bro CNM Summary Discharge Diagnosis (1) First degree perineal laceration during delivery: Status: Acute Problem Details: Patient sitting up in bed, feeling well, eager for discharge to home. Voiding and ambulating independently. Tolerating general diet. Pain now well controlled w/ PO meds, has needed oxycodone. Confidently . Partner is present and supportive. Time Spent with Patient Time attestation: Total time spent providing and/or coordinating discharge services: Objective Labs Result Diagrams: 04/14/20 20:00 Labs: Laboratory Results - last 24 hr 04/14/20 04/14/20 20:00 20:00 WBC 13.7 H RBC 4.71 Hgb 14.3 Hct 41.6 MCV 88.4 MCH 30.4 MCHC 34.4 RDW 12.7 Plt Count 151 Neut % (Auto) 72.0 Lymph % (Auto) 19.2 L [place] % (Auto) 7.1 Eos % (Auto) 0.8 L Baso % (Auto) 0.9 Neut # (Auto) 9900 H Lymph # (Auto) 2600 [place] # (Auto) 1000 H Eos # (Auto) 100 Baso # (Auto) 100 Blood Type O Positive Antibody Screen Negative Exam Vital Signs (past 8 hours): - 04/15/20 05:51 04/15/20 11:46 Temperature 97.8 F Pulse Rate 64 Respiratory Rate 16 Blood Pressure 135/50 L 119/71 Other: Fundus firm @ U, lochia light, no clots Psych Appearance: grossly normal Affect: normal affect Discharge Plan Discharge Plan Patient Disposition: Home Discharge orders & Medications Prescriptions: New acetaminophen 325 mg Tablet 650 mg PO Q6HR PRN (Reason: Pain, Mild (1-3)) 14 Days Qty: 100 RF: 1 docusate sodium [DOK] 100 mg Capsule 100 mg PO DAILY 7 Days Qty: 10 RF: 0 ibuprofen 600 mg Tablet 600 mg PO Q6HR PRN (Reason: Pain, Mild (1-3)) 14 Days Qty: 60 RF: 1 oxycodone 5 mg Tablet 5 mg PO Q4HR PRN (Reason: Pain, Moderate (4-6)) 5 Days Qty: 10 RF: 0 Continued krill oil 500 mg capsule PO RF: 0 Adult Probiotic 3 billion cell capsule 3,000 mmu cells PO DAILY RF: 0 prenat.vits,tobias,[id number] Tablet 1 tab PO DAILY RF: 0 Discontinued ondansetron 4 mg tablet,disintegrating 4 mg PO Q6H PRN (Reason: nausea and vomiting) Qty: 20 RF: 0 valacyclovir 1 gram tablet 2,000 mg PO BID Qty: 4 RF: 1 Follow up/Referrals: Magdalene Bro CNM [Advanced Drama Director] - (Follow-up at 2 weeks by Telehealth 04/29/20 @ 1:30pm Follow-up at 6 weeks in office 05/27/20 @ 2pm) Austin Lee DO [Primary Care Provider] - Diet/Activity/Treatments Diet: Feed on demand Activity: pelvic rest x 6 weeks Skin/Wound/Dressing Care Report to your healthcare provider any signs of infection, such as:: chills, fever, increased pain, unusual drainage and unusual redness Visit Report/Discharge Packet Instructions: DI for Depression Discharge Data Primary Care Provider: Austin Lee
== END 2020-04-15 19:26 | disposition home or self-care (01) | DRG 560 ==
PROVIDERS: Admitting Provider Nurse Practitioner Obstetrics & Gynecology; PCP Family Medicine; Referring Provider Nurse Practitioner Obstetrics & Gynecology; Visit Provider Nurse Practitioner Obstetrics & Gynecology
DX: O42.02 Full-term premature rupture of membranes, onset of labor within 24 hours of rupture (principal); B00.9 Herpesviral infection, unspecified; O98.32 Other infections with a predominantly sexual mode of transmission complicating childbirth; Z3A.37 37 weeks gestation of pregnancy; Z37.0 Single live birth; O70.0 First degree perineal laceration during delivery; O99.89 Other specified diseases and conditions complicating pregnancy, childbirth and the puerperium; Z28.3 Underimmunization status
CPT/HCPCS: 59025; 59050; 85025; 86850; 86900; 86901; 87635; G0378; G0379; J1885

== ENCOUNTER 2021-07-08 08:15 | Outpatient (RCR) | payer OTHER, MEDICAID, SELFPAY ==
--- NOTE | 2021-04-15 10:07 | PT.OIE ---
Current Diagnoses Pain in left hip (04/15/21) Pelvic and perineal pain (04/15/21) Past Medical History (Last Updated 08/01/20 @ 14:37 by Austin Lee DO) Acute neck pain Cervical somatic dysfunction Closed fracture of distal phalanx of left little finger Depression HSV-1 (herpes simplex virus 1) infection Pelvic somatic dysfunction Segmental and somatic dysfunction of abdomen and other regions Segmental and somatic dysfunction of lower extremity Segmental and somatic dysfunction of lumbar region Segmental and somatic dysfunction of rib cage Segmental and somatic dysfunction of sacral region Short leg syndrome, left, acquired Stiff neck (spontaneous vaginal delivery) Thoracic region somatic dysfunction [place] teeth extracted Past Surgical History (Last Reviewed 04/14/20 @ 19:57 by Magdalene Leyva CNM) [place] teeth extracted Visit Care Team Role Provider Type Austin Lee DO Attending Provider Physician Family Provider Primary Care Provider Referring Provider Specialty: Family Practice Address: [address] [place] [address] Email: Physical Therapy Initial Evaluation PT-OP-A Visit Information Start: 03/28/21 13:12 Freq: Status: Active Protocol: Document 04/15/21 08:15 AMB (Rec: 04/15/21 10:07 AMB [email or web address]) Out-Patient Physical Therapy Visit Information Visit Information Visit Type Initial Evaluation Visit Start Time 08:15 Visit Stop Time 09:00 Total Visit Minutes 45 Visit Number 1 PT-OP-B Current Condition Start: 03/28/21 13:12 Freq: Status: Active Protocol: Document 04/15/21 08:13 AMB (Rec: 04/15/21 09:33 AMB [id number]) Current Condition History of Current Condition Onset Date 04/14 Current Complaints hip pain, neck pain History of Current Condition Hips not tolerating running or weight lifting, stiffness and pain when waking. 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 Running hurts after a couple miles, weight lifting light weights only, and then can feel it next day in SI/low back. Staying the same. 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 Was able to run/lift before . Treatment Goals Patient/Caregiver Goals Return to weightlifting/ running, sleep without pain Personal Factors Other Personal Factors That May Effect hip dysplasia as a baby, Therapy/Recovery moderate pubic symphysis dysfunction with both pregnancies PT-OP-C Subjective Start: 03/28/21 13:12 Freq: Status: Active Protocol: Document 04/15/21 08:15 AMB (Rec: 04/15/21 10:07 AMB [email or web address]) OP-PT Pain Assessment Comments Pain Comments 4/10 L hip, 2/10 R hip. 3-4/ 10 neck PT-OP-J Posture/Palpation/Skin Start: 04/15/21 09:34 Freq: Status: Active Protocol: Document 04/15/21 08:15 AMB (Rec: 04/15/21 10:07 AMB [email or web address]) Palpation Assessment Location One Palpation Location pelvis/back/abdomen Palpation Details 2 finger width diastasis recti above umbilicus, 1.5 below. L ASIS and medial malleolus appear high in supine. Tightness at Bilateral QL, iliopsoas and IT bands. PT-OP-M Strength Start: 04/15/21 09:34 Freq: Status: Active Protocol: Document 04/15/21 08:15 AMB (Rec: 04/15/21 10:07 AMB [email or web address]) Hip Strength Hip Manual Muscle Testing Right Flexion (L2) 5 Normal Extension (S1) 5 Normal Abduction 5 Normal Left Flexion (L2) 5 Normal Extension (S1) 5 Normal Abduction 5 Normal PT-OP-Q Treatments Start: 03/28/21 13:12 Freq: Status: Active Protocol: Document 04/15/21 08:15 AMB (Rec: 04/15/21 10:07 AMB [email or web address]) Therapeutic Exercises Supine Exercises 1 Supine Exercise Name hip flexor stretch Side right Reps/Minutes 30x2 Comments c ppt Sitting Exercises 1 Sitting Exercise Name roll in Reps/Minutes 10 Comments cues for ta and pf PT-OP-T Assessment and Plan Start: 03/28/21 13:12 Freq: Status: Active Protocol: Document 04/15/21 08:15 AMB (Rec: 04/15/21 10:07 AMB [email or web address]) Physical Therapy Assessment Rehab Potential Rehabilitation Potential Good Evaluation Complexity Number of Personal Factors/Comorbidities 1-2 Number of Body Systems Impaired 1-2 Clinical Presentation at Evaluation Stable Impairments Impairments Functional Activities,Pain, Soft Tissue Mobility,Strength Goals Two Impairment Pain Short Term Goal (STG) Antonella will sleep for 6 hours with 2/10 pain or less. STG Duration 4 weeks Roll Tester Goal (LTG) Antonella will be able to lunge forward or laterally without hip/pubic symphysis or SI pain . LTG Duration 8 weeks One Impairment Pt unable to exercise at prior level of function Short Term Goal (STG) Antonella will be independent with her HEP of core and LE stabilization training. STG Duration 4 weeks Senior Care Goal (LTG) Anotnella will return to weightlifting with 2/10 pain or less. LTG Duration 8 weeks Assessment Summary Assessment Antonella attends physical therapy with hip, pubic symphysis, SI pain 1 year after the of her daughter. Her biggest pain issues are centered around sleeping (lateral hip pain) and being up and around/ trying to exercise (SI/low back pain). She continues to have pubic symphysis dysfunction and likely needs more stabilization so that her QL, IT band, and iliopsoas can decrease their resting tone and allow her to move with less stiffness pain. Physical Therapy Plan Frequency and Duration Frequency of Treatment 1x/Week Duration of Treatment 12 weeks Plan of Care Start Date 04/15/21 Plan of Care End Date 07/08/21 Therapeutic Interventions Therapeutic Interventions Home Exercise Program,Joint Mobilizations,Manual Therapy, Neuromuscular Re-education, Self-Care/Home Management, Therapeutic Activities, Therapeutic Exercises Modalities Cold Pack/Ice Massage,Electric Stimulation,Ultrasound Next Visit Focus/Plan Next Note Type Treatment Note Next Visit Plan Follow up on roll ins and hip flexor stretches, progress core stability, QL/ IT Band stretches
--- NOTE | 2021-04-15 10:07 | PT.OPPOC ---
Physical, Occupational & Speech Therapy At [facility] Current Diagnoses Pain in left hip (04/15/21) Pelvic and perineal pain (04/15/21) Visit Care Team Role Provider Type Austin Lee DO Attending Provider Physician Family Provider Primary Care Provider Referring Provider Specialty: Family Practice Address: [address] [place] [address], [facility] Email: Plan Of Care PT-OP-T Assessment and Plan Start: 03/28/21 13:12 Freq: Status: Active Protocol: Document 04/15/21 08:15 AMB (Rec: 04/15/21 10:07 AMB [email or web address]) Physical Therapy Assessment Rehab Potential Rehabilitation Potential Good Evaluation Complexity Number of Personal Factors/Comorbidities 1-2 Number of Body Systems Impaired 1-2 Clinical Presentation at Evaluation Stable Impairments Impairments Functional Activities,Pain, Soft Tissue Mobility,Strength Goals Two Impairment Pain Short Term Goal (STG) Antonella will sleep for 6 hours with 2/10 pain or less. STG Duration 4 weeks Sign Maker Goal (LTG) Antonella will be able to lunge forward or laterally without hip/pubic symphysis or SI pain . LTG Duration 8 weeks One Impairment Pt unable to exercise at prior level of function Short Term Goal (STG) Antonella will be independent with her HEP of core and LE stabilization training. STG Duration 4 weeks Sign Maker Goal (LTG) Antonella will return to weightlifting with 2/10 pain or less. LTG Duration 8 weeks Assessment Summary Assessment Antonella attends physical therapy with hip, pubic symphysis, SI pain 1 year after the of her daughter. Her biggest pain issues are centered around sleeping (lateral hip pain) and being up and around/ trying to exercise (SI/low back pain). She continues to have pubic symphysis dysfunction and diastasis recti and needs more stabilization so that her QL, IT band, and iliopsoas can decrease their resting tone and allow her to move with less stiffness pain. Physical Therapy Plan Frequency and Duration Frequency of Treatment 1x/Week Duration of Treatment 12 weeks Plan of Care Start Date 04/15/21 Plan of Care End Date 07/08/21 Therapeutic Interventions Therapeutic Interventions Home Exercise Program,Joint Mobilizations,Manual Therapy, Neuromuscular Re-education, Self-Care/Home Management, Therapeutic Activities, Therapeutic Exercises Modalities Cold Pack/Ice Massage,Electric Stimulation,Ultrasound Next Visit Focus/Plan Next Note Type Treatment Note Next Visit Plan Follow up on roll ins and hip flexor stretches, progress core stability, QL/ IT Band stretches Plan of Care Dates Plan of Care Start Date 04/15/21 Plan of Care End Date 07/08/21 Electronically Signed by: Gabriela Walters, PT 04/15/21 1007 Please Sign and Return: I have reviewed this Plan of Care and certify that the skilled therapy services above are required to meet the patient?s needs. Physician Signature Date Printed Name and Credentials Clinical Instructor Signature Printed Name and Credentials
--- NOTE | 2021-04-21 09:16 | PT.OTN ---
Current Diagnoses Pain in left hip (04/21/21) Pelvic and perineal pain (04/21/21) Physical Therapy Treatment Note PT-OP-A Visit Information Start: 03/28/21 13:12 Freq: Status: Active Protocol: Document 04/21/21 08:15 AMB (Rec: 04/21/21 09:04 AMB [id number]) Out-Patient Physical Therapy Visit Information Visit Information Visit Type Treatment Note Visit Start Time 08:15 Visit Stop Time 09:00 Total Visit Minutes 45 Visit Number 2 PT-OP-B Current Condition Start: 03/28/21 13:12 Freq: Status: Active Protocol: Document 04/15/21 08:13 AMB (Rec: 04/15/21 09:33 AMB [id number]) Current Condition History of Current Condition Onset Date 04/14 Current Complaints hip pain, neck pain History of Current Condition Hips not tolerating running or weight lifting, stiffness and pain when waking. 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 Running hurts after a couple miles, weight lifting light weights only, and then can feel it next day in SI/low back. Staying the same. 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 Was able to run/lift before . Treatment Goals Patient/Caregiver Goals Return to weightlifting/ running, sleep without pain Personal Factors Other Personal Factors That May Effect hip dysplasia as a baby, Therapy/Recovery moderate pubic symphysis dysfunction with both pregnancies PT-OP-C Subjective Start: 03/28/21 13:12 Freq: Status: Active Protocol: Document 04/21/21 08:15 AMB (Rec: 04/21/21 09:04 AMB [id number]) OP-PT Subjective Patient Comments Patient Comments Pt was a little sore after last treatment but has felt better a little bit with sleeping since then. PT-OP-J Posture/Palpation/Skin Start: 04/15/21 09:34 Freq: Status: Active Protocol: Document 04/15/21 08:15 AMB (Rec: 04/15/21 10:07 AMB [email or web address]) Palpation Assessment Location One Palpation Location pelvis/back/abdomen Palpation Details 2 finger width diastasis recti above umbilicus, 1.5 below. L ASIS and medial malleolus appear high in supine. Tightness at Bilateral QL, iliopsoas and IT bands. PT-OP-M Strength Start: 04/15/21 09:34 Freq: Status: Active Protocol: Document 04/15/21 08:15 AMB (Rec: 04/15/21 10:07 AMB [email or web address]) Hip Strength Hip Manual Muscle Testing Right Flexion (L2) 5 Normal Extension (S1) 5 Normal Abduction 5 Normal Left Flexion (L2) 5 Normal Extension (S1) 5 Normal Abduction 5 Normal PT-OP-Q Treatments Start: 03/28/21 13:12 Freq: Status: Active Protocol: Document 04/21/21 08:15 AMB (Rec: 04/21/21 09:15 AMB [id number]) Therapeutic Exercises Supine Exercises 2 Supine Exercise Name table top tap down Reps/Minutes 10 Comments cues for TA, PF 1 Supine Exercise Name hip flexor stretch Side right Reps/Minutes 30x2 Comments c ppt Sidelying Exercises hip abd Reps/Minutes 2x10 clamshell Reps/Minutes 2x10 Comments HEP Standing Exercises half florian side bend Reps/Minutes 2' Comments modified with WBOS Other Exercises madisyn pose Reps/Minutes 30x4 Comments c hips wide, toes in, pillow between thighs and core Manual Therapy Treatment Taping SI joint Type of Tape Kinesio Tape Comments I strip PT-OP-T Assessment and Plan Start: 03/28/21 13:12 Freq: Status: Active Protocol: Document 04/21/21 08:15 AMB (Rec: 04/21/21 09:04 AMB [id number]) Physical Therapy Assessment Assessment Summary Assessment Antonella tolerated exercises well , but will need to follow up on how she feels afterward. Continue with lateral stretching and core stabilization. Physical Therapy Plan Next Visit Focus/Plan Next Note Type Treatment Note Next Visit Plan Pt given madisyn pose, table top tap down, and clamshell as HEP, follow up on tolerance to K tape.
--- NOTE | 2021-05-06 10:08 | PT.OTN ---
Current Diagnoses Pain in left hip (05/06/21) Pelvic and perineal pain (05/06/21) Physical Therapy Treatment Note PT-OP-A Visit Information Start: 03/28/21 13:12 Freq: Status: Active Protocol: Document 05/06/21 08:15 AMB (Rec: 05/06/21 10:08 AMB [email or web address]) Out-Patient Physical Therapy Visit Information Visit Information Visit Type Treatment Note Visit Start Time 08:15 Visit Stop Time 09:00 Total Visit Minutes 45 Visit Number 3 PT-OP-B Current Condition Start: 03/28/21 13:12 Freq: Status: Active Protocol: Document 04/15/21 08:13 AMB (Rec: 04/15/21 09:33 AMB [id number]) Current Condition History of Current Condition Onset Date 04/14 Current Complaints hip pain, neck pain History of Current Condition Hips not tolerating running or weight lifting, stiffness and pain when waking. 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 Running hurts after a couple miles, weight lifting light weights only, and then can feel it next day in SI/low back. Staying the same. 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 Was able to run/lift before . Treatment Goals Patient/Caregiver Goals Return to weightlifting/ running, sleep without pain Personal Factors Other Personal Factors That May Effect hip dysplasia as a baby, Therapy/Recovery moderate pubic symphysis dysfunction with both pregnancies PT-OP-C Subjective Start: 03/28/21 13:12 Freq: Status: Active Protocol: Document 05/06/21 08:15 AMB (Rec: 05/06/21 10:08 AMB [email or web address]) OP-PT Subjective Patient Comments Patient Comments Pt was sick last week, she didn't exercise for a few days . She is feeling like that was a bit of a decline. Feeling left hip and low back today. PT-OP-J Posture/Palpation/Skin Start: 04/15/21 09:34 Freq: Status: Active Protocol: Document 04/15/21 08:15 AMB (Rec: 04/15/21 10:07 AMB [email or web address]) Palpation Assessment Location One Palpation Location pelvis/back/abdomen Palpation Details 2 finger width diastasis recti above umbilicus, 1.5 below. L ASIS and medial malleolus appear high in supine. Tightness at Bilateral QL, iliopsoas and IT bands. PT-OP-M Strength Start: 04/15/21 09:34 Freq: Status: Active Protocol: Document 04/15/21 08:15 AMB (Rec: 04/15/21 10:07 AMB [email or web address]) Hip Strength Hip Manual Muscle Testing Right Flexion (L2) 5 Normal Extension (S1) 5 Normal Abduction 5 Normal Left Flexion (L2) 5 Normal Extension (S1) 5 Normal Abduction 5 Normal PT-OP-Q Treatments Start: 03/28/21 13:12 Freq: Status: Active Protocol: Document 05/06/21 08:15 AMB (Rec: 05/06/21 10:08 AMB [email or web address]) Therapeutic Exercises Other Exercises quadruped Other Exercise Name LE ext, and ER Reps/Minutes 2x10 Comments with cues for breath, TA, PF Manual Therapy Treatment Soft Tissue Mobilization L hip/low back Mobilization Type Myofascial Release Intensity/Depth Moderate Body Position Sidelying Comments L IT band, QL, glut med, piriformis PT-OP-T Assessment and Plan Start: 03/28/21 13:12 Freq: Status: Active Protocol: Document 05/06/21 08:15 AMB (Rec: 05/06/21 10:08 AMB [email or web address]) Physical Therapy Assessment Goals Two Impairment Pain Short Term Goal (STG) Antonella will sleep for 6 hours with 2/10 pain or less. STG Duration 4 weeks Jail Goal (LTG) Antonella will be able to lunge forward or laterally without hip/pubic symphysis or SI pain . LTG Duration 8 weeks One Impairment Pt unable to exercise at prior level of function Short Term Goal (STG) Antonella will be independent with her HEP of core and LE stabilization training. STG Duration 4 weeks Jail Goal (LTG) Antonella will return to weightlifting with 2/10 pain or less. LTG Duration 8 weeks Assessment Summary Assessment Antonella is doing well with exercises, encouraged not to overstretch, continue rolling, does feel L hip extension is tighter. Physical Therapy Plan Next Visit Focus/Plan Next Visit Plan Pt given quadruped hip extension and ER as HEP
--- NOTE | 2021-05-13 09:33 | PT.OTN ---
Current Diagnoses Pain in left hip (05/13/21) Pelvic and perineal pain (05/13/21) Physical Therapy Treatment Note PT-OP-A Visit Information Start: 03/28/21 13:12 Freq: Status: Active Protocol: Document 05/13/21 08:15 AMB (Rec: 05/14/21 16:31 AMB [email or web address]) Out-Patient Physical Therapy Visit Information Visit Information Visit Type Initial Evaluation Visit Start Time 08:15 Visit Stop Time 09:00 Total Visit Minutes 45 Visit Number 1 PT-OP-B Current Condition Start: 03/28/21 13:12 Freq: Status: Active Protocol: Document 04/15/21 08:13 AMB (Rec: 04/15/21 09:33 AMB [id number]) Current Condition History of Current Condition Onset Date 04/14 Current Complaints hip pain, neck pain History of Current Condition Hips not tolerating running or weight lifting, stiffness and pain when waking. 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 Running hurts after a couple miles, weight lifting light weights only, and then can feel it next day in SI/low back. Staying the same. 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 Was able to run/lift before . Treatment Goals Patient/Caregiver Goals Return to weightlifting/ running, sleep without pain Personal Factors Other Personal Factors That May Effect hip dysplasia as a baby, Therapy/Recovery moderate pubic symphysis dysfunction with both pregnancies PT-OP-C Subjective Start: 03/28/21 13:12 Freq: Status: Active Protocol: Document 05/13/21 08:15 AMB (Rec: 05/18/21 09:33 AMB [email or web address]) OP-PT Subjective Patient Comments Patient Comments Pt reports she is getting better, continues to have hip pain with sleeping PT-OP-J Posture/Palpation/Skin Start: 04/15/21 09:34 Freq: Status: Active Protocol: Document 04/15/21 08:15 AMB (Rec: 04/15/21 10:07 AMB [email or web address]) Palpation Assessment Location One Palpation Location pelvis/back/abdomen Palpation Details 2 finger width diastasis recti above umbilicus, 1.5 below. L ASIS and medial malleolus appear high in supine. Tightness at Bilateral QL, iliopsoas and IT bands. PT-OP-M Strength Start: 04/15/21 09:34 Freq: Status: Active Protocol: Document 04/15/21 08:15 AMB (Rec: 04/15/21 10:07 AMB [email or web address]) Hip Strength Hip Manual Muscle Testing Right Flexion (L2) 5 Normal Extension (S1) 5 Normal Abduction 5 Normal Left Flexion (L2) 5 Normal Extension (S1) 5 Normal Abduction 5 Normal PT-OP-Q Treatments Start: 03/28/21 13:12 Freq: Status: Active Protocol: Document 05/13/21 08:15 AMB (Rec: 05/18/21 09:33 AMB [email or web address]) Therapeutic Exercises Supine Exercises 2 Supine Exercise Name table top tap down Reps/Minutes 10 Comments cues for TA, PF Sidelying Exercises hip abd Reps/Minutes 2x10 clamshell Reps/Minutes 2x10 Comments HEP Other Exercises quadruped Other Exercise Name LE ext, and ER Reps/Minutes 2x10 Comments with cues for breath, TA, PF madisyn pose Reps/Minutes 30x4 Comments c hips wide, toes in, pillow between thighs and core Manual Therapy Treatment Soft Tissue Mobilization L hip/low back Mobilization Type Myofascial Release Intensity/Depth Moderate Body Position Sidelying Comments B IT band, QL, glut med, piriformis PT-OP-T Assessment and Plan Start: 03/28/21 13:12 Freq: Status: Active Protocol: Document 05/13/21 08:15 AMB (Rec: 05/18/21 09:33 AMB [email or web address]) Physical Therapy Assessment Assessment Summary Assessment Antonella continues to have tension in IT bands and weakness in glute med, but overall pain is decreasing. Physical Therapy Plan Next Visit Focus/Plan Next Note Type Treatment Note Next Visit Plan Progress hip stabilization
--- NOTE | 2021-05-22 08:53 | PT.OTN ---
Current Diagnoses Pain in left hip (05/20/21) Pelvic and perineal pain (05/20/21) Physical Therapy Treatment Note PT-OP-A Visit Information Start: 03/28/21 13:12 Freq: Status: Active Protocol: Document 05/20/21 08:15 AMB (Rec: 05/20/21 16:08 AMB [email or web address]) Out-Patient Physical Therapy Visit Information Visit Information Visit Type Treatment Note Visit Start Time 08:15 Visit Stop Time 09:00 Total Visit Minutes 45 Visit Number 5 PT-OP-B Current Condition Start: 03/28/21 13:12 Freq: Status: Active Protocol: Document 04/15/21 08:13 AMB (Rec: 04/15/21 09:33 AMB [id number]) Current Condition History of Current Condition Onset Date 04/14 Current Complaints hip pain, neck pain History of Current Condition Hips not tolerating running or weight lifting, stiffness and pain when waking. 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 Running hurts after a couple miles, weight lifting light weights only, and then can feel it next day in SI/low back. Staying the same. 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 Was able to run/lift before . Treatment Goals Patient/Caregiver Goals Return to weightlifting/ running, sleep without pain Personal Factors Other Personal Factors That May Effect hip dysplasia as a baby, Therapy/Recovery moderate pubic symphysis dysfunction with both pregnancies PT-OP-C Subjective Start: 03/28/21 13:12 Freq: Status: Active Protocol: Document 05/20/21 08:15 AMB (Rec: 05/22/21 08:53 AMB [email or web address]) OP-PT Subjective Patient Comments Patient Comments Pt reports she continues to feel good after PT, but then sx increase throughout the week. PT-OP-J Posture/Palpation/Skin Start: 04/15/21 09:34 Freq: Status: Active Protocol: Document 04/15/21 08:15 AMB (Rec: 04/15/21 10:07 AMB [email or web address]) Palpation Assessment Location One Palpation Location pelvis/back/abdomen Palpation Details 2 finger width diastasis recti above umbilicus, 1.5 below. L ASIS and medial malleolus appear high in supine. Tightness at Bilateral QL, iliopsoas and IT bands. PT-OP-M Strength Start: 04/15/21 09:34 Freq: Status: Active Protocol: Document 04/15/21 08:15 AMB (Rec: 04/15/21 10:07 AMB [email or web address]) Hip Strength Hip Manual Muscle Testing Right Flexion (L2) 5 Normal Extension (S1) 5 Normal Abduction 5 Normal Left Flexion (L2) 5 Normal Extension (S1) 5 Normal Abduction 5 Normal PT-OP-Q Treatments Start: 03/28/21 13:12 Freq: Status: Active Protocol: Document 05/20/21 08:15 AMB (Rec: 05/22/21 08:53 AMB [email or web address]) Therapeutic Exercises Standing Exercises half florian side bend Standing Exercise Name written HEP Reps/Minutes 2' Comments modified with WBOS Other Exercises 2 Other Exercise Name side plank Reps/Minutes 2x10 1 Other Exercise Name thread the needle Reps/Minutes 2x10 quadruped Other Exercise Name LE ext, and ER Reps/Minutes 2x10 Comments with cues for breath, TA, PF madisyn pose Reps/Minutes 30x4 Comments c hips wide, toes in, pillow between thighs and core Manual Therapy Treatment Soft Tissue Mobilization L hip/low back Mobilization Type Myofascial Release Intensity/Depth Moderate Body Position Sidelying Comments L, QL, glut med, piriformis PT-OP-T Assessment and Plan Start: 03/28/21 13:12 Freq: Status: Active Protocol: Document 05/20/21 08:15 AMB (Rec: 05/22/21 08:53 AMB [email or web address]) Physical Therapy Assessment Goals Two Impairment Pain Short Term Goal (STG) Antonella will sleep for 6 hours with 2/10 pain or less. STG Duration 4 weeks Retirement Goal (LTG) Antonella will be able to lunge forward or laterally without hip/pubic symphysis or SI pain . LTG Duration 8 weeks One Impairment Pt unable to exercise at prior level of function Short Term Goal (STG) Antonella will be independent with her HEP of core and LE stabilization training. STG Duration 4 weeks Retirement Goal (LTG) Antonella will return to weightlifting with 2/10 pain or less. LTG Duration 8 weeks Assessment Summary Assessment Antonella tolerated exercises well . [place] good relief with QL stretch. Will need to follow up as to how long relief lasts . Physical Therapy Plan Next Visit Focus/Plan Next Note Type Treatment Note Next Visit Plan Progress hip stabilization/ QL stretching
--- NOTE | 2021-05-27 09:43 | PT.OTN ---
Current Diagnoses Pain in left hip (05/27/21) Pelvic and perineal pain (05/27/21) Physical Therapy Treatment Note PT-OP-A Visit Information Start: 03/28/21 13:12 Freq: Status: Active Protocol: Document 05/27/21 08:26 AMB (Rec: 05/27/21 09:07 AMB [id number]) Out-Patient Physical Therapy Visit Information Visit Information Visit Type Treatment Note Visit Start Time 08:15 Visit Stop Time 09:10 Total Visit Minutes 55 Visit Number 6 PT-OP-B Current Condition Start: 03/28/21 13:12 Freq: Status: Active Protocol: Document 04/15/21 08:13 AMB (Rec: 04/15/21 09:33 AMB [id number]) Current Condition History of Current Condition Onset Date 04/14 Current Complaints hip pain, neck pain History of Current Condition Hips not tolerating running or weight lifting, stiffness and pain when waking. 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 Running hurts after a couple miles, weight lifting light weights only, and then can feel it next day in SI/low back. Staying the same. 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 Was able to run/lift before . Treatment Goals Patient/Caregiver Goals Return to weightlifting/ running, sleep without pain Personal Factors Other Personal Factors That May Effect hip dysplasia as a baby, Therapy/Recovery moderate pubic symphysis dysfunction with both pregnancies PT-OP-C Subjective Start: 03/28/21 13:12 Freq: Status: Active Protocol: Document 05/27/21 09:30 AMB (Rec: 05/27/21 09:43 AMB [email or web address]) OP-PT Subjective Patient Comments Patient Comments Pt fetl better after last visit, was tired after side plank. Is feeling like she is improving, but continues to have tightness in left low back/hip. PT-OP-J Posture/Palpation/Skin Start: 04/15/21 09:34 Freq: Status: Active Protocol: Document 04/15/21 08:15 AMB (Rec: 04/15/21 10:07 AMB [email or web address]) Palpation Assessment Location One Palpation Location pelvis/back/abdomen Palpation Details 2 finger width diastasis recti above umbilicus, 1.5 below. L ASIS and medial malleolus appear high in supine. Tightness at Bilateral QL, iliopsoas and IT bands. PT-OP-M Strength Start: 04/15/21 09:34 Freq: Status: Active Protocol: Document 04/15/21 08:15 AMB (Rec: 04/15/21 10:07 AMB [email or web address]) Hip Strength Hip Manual Muscle Testing Right Flexion (L2) 5 Normal Extension (S1) 5 Normal Abduction 5 Normal Left Flexion (L2) 5 Normal Extension (S1) 5 Normal Abduction 5 Normal PT-OP-Q Treatments Start: 03/28/21 13:12 Freq: Status: Active Protocol: Document 05/27/21 09:30 AMB (Rec: 05/27/21 09:43 AMB [email or web address]) Therapeutic Exercises Supine Exercises 2 Supine Exercise Name table top tap down Reps/Minutes 10 Comments cues for TA, PF 1 Supine Exercise Name IT band stretch with hamstring stretch Side bilateral Reps/Minutes 30 sec Manual Therapy Treatment Soft Tissue Mobilization L hip/low back Mobilization Type Myofascial Release Intensity/Depth Moderate Body Position Sidelying Comments L, QL, glut med, piriformis Taping 1 Body Location diastasis recti Type of Tape Kinesio Tape PT-OP-T Assessment and Plan Start: 03/28/21 13:12 Freq: Status: Active Protocol: Document 05/27/21 09:30 AMB (Rec: 05/27/21 09:43 AMB [email or web address]) Physical Therapy Assessment Goals Two Impairment Pain Short Term Goal (STG) Antonella will sleep for 6 hours with 2/10 pain or less. STG Duration 4 weeks Lead C Developer Goal (LTG) Antonella will be able to lunge forward or laterally without hip/pubic symphysis or SI pain . LTG Duration 8 weeks One Impairment Pt unable to exercise at prior level of function Short Term Goal (STG) Antonella will be independent with her HEP of core and LE stabilization training. STG Duration 4 weeks Lead C Developer Goal (LTG) Antonella will return to weightlifting with 2/10 pain or less. LTG Duration 8 weeks Assessment Summary Assessment Prioritized exercises for Antonella today as she was getting a bit overwhelmed. Instructed to focus on madisyn pose with sidebend, quadruped LE ext, sideplank, and TA stabilization with toe tap. Physical Therapy Plan Next Visit Focus/Plan Next Note Type Treatment Note Next Visit Plan Progress core stabilization
--- NOTE | 2021-06-03 09:41 | PT.OTN ---
Current Diagnoses Pain in left hip (06/03/21) Pelvic and perineal pain (06/03/21) Physical Therapy Treatment Note PT-OP-A Visit Information Start: 03/28/21 13:12 Freq: Status: Active Protocol: Document 06/03/21 08:15 AMB (Rec: 06/03/21 08:58 AMB [id number]) Out-Patient Physical Therapy Visit Information Visit Information Visit Type Treatment Note Visit Start Time 08:15 Visit Stop Time 09:00 Total Visit Minutes 45 Visit Number 7 PT-OP-B Current Condition Start: 03/28/21 13:12 Freq: Status: Active Protocol: Document 04/15/21 08:13 AMB (Rec: 04/15/21 09:33 AMB [id number]) Current Condition History of Current Condition Onset Date 04/14 Current Complaints hip pain, neck pain History of Current Condition Hips not tolerating running or weight lifting, stiffness and pain when waking. 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 Running hurts after a couple miles, weight lifting light weights only, and then can feel it next day in SI/low back. Staying the same. 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 Was able to run/lift before . 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 PT-OP-J Posture/Palpation/Skin Start: 04/15/21 09:34 Freq: Status: Active Protocol: Document 04/15/21 08:15 AMB (Rec: 04/15/21 10:07 AMB [email or web address]) Palpation Assessment Location One Palpation Location pelvis/back/abdomen Palpation Details 2 finger width diastasis recti above umbilicus, 1.5 below. L ASIS and medial malleolus appear high in supine. Tightness at Bilateral QL, iliopsoas and IT bands. PT-OP-M Strength Start: 04/15/21 09:34 Freq: Status: Active Protocol: Document 04/15/21 08:15 AMB (Rec: 04/15/21 10:07 AMB [email or web address]) Hip Strength Hip Manual Muscle Testing Right Flexion (L2) 5 Normal Extension (S1) 5 Normal Abduction 5 Normal Left Flexion (L2) 5 Normal Extension (S1) 5 Normal Abduction 5 Normal PT-OP-Q Treatments Start: 03/28/21 13:12 Freq: Status: Active Protocol: Document 06/03/21 09:23 AMB (Rec: 06/03/21 09:40 AMB [email or web address]) Therapeutic Exercises Supine Exercises 2 Supine Exercise Name table top tap down Reps/Minutes 10 Comments cues for TA, PF Sidelying Exercises side plank Sidelying Exercise Name modified on knees Reps/Minutes with clamshell Standing Exercises lunges Standing Exercise Name fwd, lateral Reps/Minutes 2x10 ea squats Standing Exercise Name with cues to press through heels to engage glutes Reps/Minutes 10 Other Exercises quadruped Other Exercise Name LE ext, and ER Reps/Minutes 2x10 Comments bent knee to decrease hamstring PT-OP-T Assessment and Plan Start: 03/28/21 13:12 Freq: Status: Active Protocol: Document 06/03/21 08:15 AMB (Rec: 06/03/21 08:58 AMB [id number]) Physical Therapy Assessment Goals Two Impairment Pain Short Term Goal (STG) Antonella will sleep for 6 hours with 2/10 pain or less. STG Duration MET Chair Maker Goal (LTG) Antonella will be able to lunge forward or laterally without hip/pubic symphysis or SI pain . LTG Duration MET One Impairment Pt unable to exercise at prior level of function Short Term Goal (STG) Antonella will be independent with her HEP of core and LE stabilization training. STG Duration 4 weeks Chair Maker Goal (LTG) Antonella will return to weightlifting with 2/10 pain or less. LTG Duration 8 weeks Assessment Summary Assessment Antonella had difficulty engaging glutes today and tends to compensate with LB and hamstrings, extensive education in getting glutes to engage to avoid low back flare. Physical Therapy Plan Next Visit Focus/Plan Next Note Type Treatment Note Next Visit Plan Progress core stabilization
--- NOTE | 2021-06-10 15:35 | PT.OTN ---
Current Diagnoses Pain in left hip (06/10/21) Pelvic and perineal pain (06/10/21) Physical Therapy Treatment Note PT-OP-A Visit Information Start: 03/28/21 13:12 Freq: Status: Active Protocol: Document 06/10/21 08:36 AMB (Rec: 06/10/21 09:04 AMB [id number]) Out-Patient Physical Therapy Visit Information Visit Information Visit Type Treatment Note Visit Start Time 08:15 Visit Stop Time 09:00 Total Visit Minutes 45 Visit Number 8 PT-OP-B Current Condition Start: 03/28/21 13:12 Freq: Status: Active Protocol: Document 04/15/21 08:13 AMB (Rec: 04/15/21 09:33 AMB [id number]) Current Condition History of Current Condition Onset Date 04/14 Current Complaints hip pain, neck pain History of Current Condition Hips not tolerating running or weight lifting, stiffness and pain when waking. 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 Running hurts after a couple miles, weight lifting light weights only, and then can feel it next day in SI/low back. Staying the same. 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 Was able to run/lift before . Treatment Goals Patient/Caregiver Goals Return to weightlifting/ running, sleep without pain Personal Factors Other Personal Factors That May Effect hip dysplasia as a baby, Therapy/Recovery moderate pubic symphysis dysfunction with both pregnancies PT-OP-C Subjective Start: 03/28/21 13:12 Freq: Status: Active Protocol: Document 06/10/21 08:36 AMB (Rec: 06/10/21 09:04 AMB [id number]) OP-PT Subjective Patient Comments Patient Comments Pt's hips have been feeling a lot better and sleep has been going well. Has really been working on engaging glutes. Low back is still a problem. PT-OP-J Posture/Palpation/Skin Start: 04/15/21 09:34 Freq: Status: Active Protocol: Document 04/15/21 08:15 AMB (Rec: 04/15/21 10:07 AMB [email or web address]) Palpation Assessment Location One Palpation Location pelvis/back/abdomen Palpation Details 2 finger width diastasis recti above umbilicus, 1.5 below. L ASIS and medial malleolus appear high in supine. Tightness at Bilateral QL, iliopsoas and IT bands. PT-OP-M Strength Start: 04/15/21 09:34 Freq: Status: Active Protocol: Document 04/15/21 08:15 AMB (Rec: 04/15/21 10:07 AMB [email or web address]) Hip Strength Hip Manual Muscle Testing Right Flexion (L2) 5 Normal Extension (S1) 5 Normal Abduction 5 Normal Left Flexion (L2) 5 Normal Extension (S1) 5 Normal Abduction 5 Normal PT-OP-Q Treatments Start: 03/28/21 13:12 Freq: Status: Active Protocol: Document 06/10/21 08:15 AMB (Rec: 06/10/21 11:01 AMB [email or web address]) Therapeutic Exercises Standing Exercises 1 Standing Exercise Name lift Reps/Minutes 5# Comments partial ROM to avoid pain hamstring stretch Standing Exercise Name standing at stairs Reps/Minutes 30x4 lunges Standing Exercise Name fwd, lateral Reps/Minutes 2x10 ea squats Standing Exercise Name with cues to press through heels to engage glutes Reps/Minutes 10 Other Exercises 2 Other Exercise Name side plank Reps/Minutes 2x10 1 Other Exercise Name cat cow with focus on low back PT-OP-T Assessment and Plan Start: 03/28/21 13:12 Freq: Status: Active Protocol: Document 06/10/21 08:36 AMB (Rec: 06/10/21 09:04 AMB [id number]) Physical Therapy Assessment Assessment Summary Assessment Encouraged in hamstring stretching due to tightness with forward bending. Physical Therapy Plan Next Visit Focus/Plan Next Note Type Treatment Note Next Visit Plan Progress core stabilization, follow up on hamstring stretching.
--- NOTE | 2021-06-12 10:02 | PT.OTN ---
Current Diagnoses Pain in left hip (06/12/21) Pelvic and perineal pain (06/12/21) Physical Therapy Treatment Note PT-OP-A Visit Information Start: 03/28/21 13:12 Freq: Status: Active Protocol: Document 06/12/21 08:53 AMB (Rec: 06/12/21 09:02 AMB [email or web address]) Out-Patient Physical Therapy Visit Information Visit Information Visit Type Progress Note Visit Start Time 07:30 Visit Stop Time 08:10 Total Visit Minutes 40 Visit Number 9 PT-OP-B Current Condition Start: 03/28/21 13:12 Freq: Status: Active Protocol: Document 04/15/21 08:13 AMB (Rec: 04/15/21 09:33 AMB [id number]) Current Condition History of Current Condition Onset Date 04/14 Current Complaints hip pain, neck pain History of Current Condition Hips not tolerating running or weight lifting, stiffness and pain when waking. 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 Running hurts after a couple miles, weight lifting light weights only, and then can feel it next day in SI/low back. Staying the same. 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 Was able to run/lift before . Treatment Goals Patient/Caregiver Goals Return to weightlifting/ running, sleep without pain Personal Factors Other Personal Factors That May Effect hip dysplasia as a baby, Therapy/Recovery moderate pubic symphysis dysfunction with both pregnancies PT-OP-C Subjective Start: 03/28/21 13:12 Freq: Status: Active Protocol: Document 06/12/21 08:53 AMB (Rec: 06/12/21 09:02 AMB [email or web address]) OP-PT Subjective Patient Comments Patient Comments Antonella attends PT with increase in low back pain. Left hip is feeling better but has been very stiff and painful since last PT visit in central low back. PT-OP-J Posture/Palpation/Skin Start: 04/15/21 09:34 Freq: Status: Active Protocol: Document 04/15/21 08:15 AMB (Rec: 04/15/21 10:07 AMB [email or web address]) Palpation Assessment Location One Palpation Location pelvis/back/abdomen Palpation Details 2 finger width diastasis recti above umbilicus, 1.5 below. L ASIS and medial malleolus appear high in supine. Tightness at Bilateral QL, iliopsoas and IT bands. PT-OP-M Strength Start: 04/15/21 09:34 Freq: Status: Active Protocol: Document 04/15/21 08:15 AMB (Rec: 04/15/21 10:07 AMB [email or web address]) Hip Strength Hip Manual Muscle Testing Right Flexion (L2) 5 Normal Extension (S1) 5 Normal Abduction 5 Normal Left Flexion (L2) 5 Normal Extension (S1) 5 Normal Abduction 5 Normal PT-OP-Q Treatments Start: 03/28/21 13:12 Freq: Status: Active Protocol: Document 06/12/21 09:56 AMB (Rec: 06/12/21 09:59 AMB [email or web address]) Manual Therapy Treatment Soft Tissue Mobilization L hip/low back Body Location low back Mobilization Type Myofascial Release,Sustained Pressure,Trigger Point Release Intensity/Depth Moderate Body Position Prone Joint Mobilizations 2 Joint lumbosacral Direction PIVM Grade II Body Position Sidelying 1 Joint lumbar PAs Grade II Body Position Prone Comments on pillow Manual Traction Lumbar Comments in madisyn pose, therapist distracting at ASIS posteriorly Taping 1 Body Location low back/sacrum Type of Tape Kinesio Tape Comments X over [id number] PT-OP-T Assessment and Plan Start: 03/28/21 13:12 Freq: Status: Active Protocol: Document 06/12/21 08:53 AMB (Rec: 06/12/21 09:02 AMB [email or web address]) Physical Therapy Assessment Goals Two Impairment Pain Short Term Goal (STG) Antonella will sleep for 6 hours with 2/10 pain or less. STG Duration MET Metal Ceiling Hanger Goal (LTG) Antonella will be able to lunge forward or laterally without hip/pubic symphysis or SI pain . LTG Duration MET One Impairment Pt unable to exercise at prior level of function Short Term Goal (STG) Antonella will be independent with her HEP of core and LE stabilization training. STG Duration 4 weeks Jail Goal (LTG) Antonella will return to weightlifting with 2/10 pain or less. LTG Duration 8 weeks Assessment Summary Assessment Antonella's left hip pain has improved well with physical therapy. She is having more central low back pain, worse when we worked on forward flexion to recreate her lifting her children, even with more focus on core stabilization/hip hinge. Patient will benefit from PT to continue progression of stabilization and manage low back pain so that she can care for her children with less pain. Physical Therapy Plan Frequency and Duration Frequency of Treatment 2x/Week Duration of Treatment 8 weeks Plan of Care Start Date 06/12/21 Plan of Care End Date 08/07/21 Therapeutic Interventions Therapeutic Interventions Home Exercise Program,Joint Mobilizations,Manual Therapy, Neuromuscular Re-education, Self-Care/Home Management, Therapeutic Activities, Therapeutic Exercises Modalities Cold Pack/Ice Massage,Electric Stimulation,Ultrasound
--- NOTE | 2021-06-12 10:02 | PT.OPPOC ---
Physical, Occupational & Speech Therapy At [facility] Current Diagnoses Pain in left hip (06/12/21) Pelvic and perineal pain (06/12/21) Visit Care Team Role Provider Type Austin Lee DO Attending Provider Physician Family Provider Primary Care Provider Referring Provider Specialty: Family Practice Address: [address] [place] [address], [facility] Email: Plan Of Care PT-OP-T Assessment and Plan Start: 03/28/21 13:12 Freq: Status: Active Protocol: Document 06/12/21 08:53 AMB (Rec: 06/12/21 09:02 AMB [email or web address]) Physical Therapy Assessment Goals Two Impairment Pain Short Term Goal (STG) Antonella will sleep for 6 hours with 2/10 pain or less. STG Duration MET Commercial Shrimping Captain Goal (LTG) Antonella will be able to lunge forward or laterally without hip/pubic symphysis or SI pain . LTG Duration MET One Impairment Pt unable to exercise at prior level of function Short Term Goal (STG) Antonella will be independent with her HEP of core and LE stabilization training. STG Duration 4 weeks Snf Goal (LTG) Antonella will return to weightlifting with 2/10 pain or less. LTG Duration 8 weeks Assessment Summary Assessment Antonella's left hip pain has improved well with physical therapy. She is having more central low back pain, worse when we worked on forward flexion to recreate her lifting her children, even with more focus on core stabilization/hip hinge. Patient will benefit from PT to continue progression of stabilization and manage low back pain so that she can care for her children with less pain. Physical Therapy Plan Frequency and Duration Frequency of Treatment 2x/Week Duration of Treatment 8 weeks Plan of Care Start Date 06/12/21 Plan of Care End Date 08/07/21 Therapeutic Interventions Therapeutic Interventions Home Exercise Program,Joint Mobilizations,Manual Therapy, Neuromuscular Re-education, Self-Care/Home Management, Therapeutic Activities, Therapeutic Exercises Modalities Cold Pack/Ice Massage,Electric Stimulation,Ultrasound Plan of Care Dates Plan of Care Start Date 06/12/21 Plan of Care End Date 08/07/21 Electronically Signed by: Gabriela Walters, PT 11/18/21 1002 Please Sign and Return: I have reviewed this Plan of Care and certify that the skilled therapy services above are required to meet the patient?s needs. Physician Signature Date Printed Name and Credentials Clinical Instructor Signature Printed Name and Credentials
--- NOTE | 2021-06-17 15:30 | PT.OTN ---
Current Diagnoses Pain in left hip (06/17/21) Pelvic and perineal pain (06/17/21) Physical Therapy Treatment Note PT-OP-A Visit Information Start: 03/28/21 13:12 Freq: Status: Active Protocol: Document 06/17/21 08:15 AMB (Rec: 06/17/21 08:28 AMB [id number]) Out-Patient Physical Therapy Visit Information Visit Information Visit Type Treatment Note Visit Start Time 08:15 Visit Stop Time 09:00 Total Visit Minutes 40 Visit Number 10 PT-OP-B Current Condition Start: 03/28/21 13:12 Freq: Status: Active Protocol: Document 04/15/21 08:13 AMB (Rec: 04/15/21 09:33 AMB [id number]) Current Condition History of Current Condition Onset Date 04/14 Current Complaints hip pain, neck pain History of Current Condition Hips not tolerating running or weight lifting, stiffness and pain when waking. 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 Running hurts after a couple miles, weight lifting light weights only, and then can feel it next day in SI/low back. Staying the same. 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 Was able to run/lift before . Treatment Goals Patient/Caregiver Goals Return to weightlifting/ running, sleep without pain Personal Factors Other Personal Factors That May Effect hip dysplasia as a baby, Therapy/Recovery moderate pubic symphysis dysfunction with both pregnancies PT-OP-C Subjective Start: 03/28/21 13:12 Freq: Status: Active Protocol: Document 06/17/21 08:15 AMB (Rec: 06/17/21 15:30 AMB [email or web address]) OP-PT Subjective Patient Comments Patient Comments Antonella felt better after last visit, but it didn't last, on Wednesday she tried to get into her PCP but has to wait 4 weeks to get in, did get a muscle relaxer and that did help. Feels like pain is worst on L now. PT-OP-J Posture/Palpation/Skin Start: 04/15/21 09:34 Freq: Status: Active Protocol: Document 04/15/21 08:15 AMB (Rec: 04/15/21 10:07 AMB [email or web address]) Palpation Assessment Location One Palpation Location pelvis/back/abdomen Palpation Details 2 finger width diastasis recti above umbilicus, 1.5 below. L ASIS and medial malleolus appear high in supine. Tightness at Bilateral QL, iliopsoas and IT bands. PT-OP-M Strength Start: 04/15/21 09:34 Freq: Status: Active Protocol: Document 04/15/21 08:15 AMB (Rec: 04/15/21 10:07 AMB [email or web address]) Hip Strength Hip Manual Muscle Testing Right Flexion (L2) 5 Normal Extension (S1) 5 Normal Abduction 5 Normal Left Flexion (L2) 5 Normal Extension (S1) 5 Normal Abduction 5 Normal PT-OP-Q Treatments Start: 03/28/21 13:12 Freq: Status: Active Protocol: Document 06/17/21 08:15 AMB (Rec: 06/17/21 15:28 AMB [email or web address]) Therapeutic Exercises Supine Exercises 2 Supine Exercise Name lower trunk rotation Reps/Minutes 10 1 Supine Exercise Name hooklying TA Reps/Minutes 10 Manual Therapy Treatment Soft Tissue Mobilization L hip/low back Body Location low back Mobilization Type Myofascial Release,Sustained Pressure,Trigger Point Release Intensity/Depth Moderate Body Position Sidelying Manual Traction Lumbar Comments supine L LE PT-OP-T Assessment and Plan Start: 03/28/21 13:12 Freq: Status: Active Protocol: Document 06/17/21 08:15 AMB (Rec: 06/17/21 15:28 AMB [email or web address]) Physical Therapy Assessment Goals Two Impairment Pain Short Term Goal (STG) Antonella will sleep for 6 hours with 2/10 pain or less. STG Duration MET Mcc Goal (LTG) Antonella will be able to lunge forward or laterally without hip/pubic symphysis or SI pain . LTG Duration MET One Impairment Pt unable to exercise at prior level of function Short Term Goal (STG) Antonella will be independent with her HEP of core and LE stabilization training. STG Duration 4 weeks Mcc Goal (LTG) Antonella will return to weightlifting with 2/10 pain or less. LTG Duration 8 weeks Assessment Summary Assessment Pt feels increased discomfort with TA control while in standing, but can perform in supine without an increase in pain. Difficulty maintaining spinal neutral in the morning, quite stiff and feels stuck in flexion in the morning. Physical Therapy Plan Next Visit Focus/Plan Next Note Type Treatment Note Next Visit Plan Manual therapy/ ther ex to calm down inflammation at L lumbar spine kandis with flexion/ extension.
--- NOTE | 2021-06-24 16:23 | PT.OTN ---
Current Diagnoses Pain in left hip (06/24/21) Pelvic and perineal pain (06/24/21) Physical Therapy Treatment Note PT-OP-A Visit Information Start: 03/28/21 13:12 Freq: Status: Active Protocol: Document 06/24/21 08:15 AMB (Rec: 06/24/21 16:02 AMB [email or web address]) Out-Patient Physical Therapy Visit Information Visit Information Visit Type Treatment Note Visit Start Time 08:15 Visit Stop Time 09:00 Total Visit Minutes 45 Visit Number 11 PT-OP-B Current Condition Start: 03/28/21 13:12 Freq: Status: Active Protocol: Document 04/15/21 08:13 AMB (Rec: 04/15/21 09:33 AMB [id number]) Current Condition History of Current Condition Onset Date 04/14 Current Complaints hip pain, neck pain History of Current Condition Hips not tolerating running or weight lifting, stiffness and pain when waking. 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 Running hurts after a couple miles, weight lifting light weights only, and then can feel it next day in SI/low back. Staying the same. 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 Was able to run/lift before . Treatment Goals Patient/Caregiver Goals Return to weightlifting/ running, sleep without pain Personal Factors Other Personal Factors That May Effect hip dysplasia as a baby, Therapy/Recovery moderate pubic symphysis dysfunction with both pregnancies PT-OP-C Subjective Start: 03/28/21 13:12 Freq: Status: Active Protocol: Document 06/24/21 08:15 AMB (Rec: 06/25/21 16:23 AMB [email or web address]) OP-PT Subjective Patient Comments Patient Comments Antonella is doing better this week. still feels it, but not as bad. PT-OP-J Posture/Palpation/Skin Start: 04/15/21 09:34 Freq: Status: Active Protocol: Document 04/15/21 08:15 AMB (Rec: 04/15/21 10:07 AMB [email or web address]) Palpation Assessment Location One Palpation Location pelvis/back/abdomen Palpation Details 2 finger width diastasis recti above umbilicus, 1.5 below. L ASIS and medial malleolus appear high in supine. Tightness at Bilateral QL, iliopsoas and IT bands. PT-OP-M Strength Start: 04/15/21 09:34 Freq: Status: Active Protocol: Document 04/15/21 08:15 AMB (Rec: 04/15/21 10:07 AMB [email or web address]) Hip Strength Hip Manual Muscle Testing Right Flexion (L2) 5 Normal Extension (S1) 5 Normal Abduction 5 Normal Left Flexion (L2) 5 Normal Extension (S1) 5 Normal Abduction 5 Normal PT-OP-Q Treatments Start: 03/28/21 13:12 Freq: Status: Active Protocol: Document 06/24/21 08:15 AMB (Rec: 06/25/21 16:23 AMB [email or web address]) Therapeutic Exercises Supine Exercises 2 Supine Exercise Name lower trunk rotation Reps/Minutes 10 1 Supine Exercise Name hooklying TA Reps/Minutes 10 Sidelying Exercises clamshell Reps/Minutes 2x10 Comments HEP Standing Exercises hamstring stretch Standing Exercise Name standing at stairs Reps/Minutes 30x4 Other Exercises madisyn pose Reps/Minutes 30x4 Comments c hips wide, toes in, pillow between thighs and core Manual Therapy Treatment Soft Tissue Mobilization L hip/low back Body Location low back Mobilization Type Myofascial Release,Sustained Pressure,Trigger Point Release Intensity/Depth Moderate Body Position Sidelying Joint Mobilizations 1 Joint lumbar PAs Grade II Body Position Prone Comments on pillow Manual Traction Lumbar Comments supine L LE PT-OP-T Assessment and Plan Start: 03/28/21 13:12 Freq: Status: Active Protocol: Document 06/24/21 08:15 AMB (Rec: 06/25/21 16:23 AMB [email or web address]) Physical Therapy Assessment Goals Two Impairment Pain Short Term Goal (STG) Antonella will sleep for 6 hours with 2/10 pain or less. STG Duration MET Engineer Station Mainline Goal (LTG) Antonella will be able to lunge forward or laterally without hip/pubic symphysis or SI pain . LTG Duration MET One Impairment Pt unable to exercise at prior level of function Short Term Goal (STG) Antonella will be independent with her HEP of core and LE stabilization training. STG Duration 4 weeks Engineer Station Mainline Goal (LTG) Antonella will return to weightlifting with 2/10 pain or less. LTG Duration 8 weeks Assessment Summary Assessment Antonella is doing better today, but continues to feel left sided pain, encouarged to gently continue core stabilization as her lumbar dysfunction does continue but at a lower level. Physical Therapy Plan Next Visit Focus/Plan Next Note Type Treatment Note Next Visit Plan Manual therapy/ ther ex to calm down inflammation at L lumbar spine kandis with flexion/ extension.
--- NOTE | 2021-07-01 09:38 | PT.OTN ---
Current Diagnoses Pain in left hip (07/01/21) Pelvic and perineal pain (07/01/21) Physical Therapy Treatment Note PT-OP-A Visit Information Start: 03/28/21 13:12 Freq: Status: Active Protocol: Document 07/01/21 08:15 AMB (Rec: 07/01/21 08:41 AMB [id number]) Out-Patient Physical Therapy Visit Information Visit Information Visit Type Treatment Note Visit Start Time 08:15 Visit Stop Time 09:00 Total Visit Minutes 45 Visit Number 12 PT-OP-B Current Condition Start: 03/28/21 13:12 Freq: Status: Active Protocol: Document 04/15/21 08:13 AMB (Rec: 04/15/21 09:33 AMB [id number]) Current Condition History of Current Condition Onset Date 04/14 Current Complaints hip pain, neck pain History of Current Condition Hips not tolerating running or weight lifting, stiffness and pain when waking. 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 Running hurts after a couple miles, weight lifting light weights only, and then can feel it next day in SI/low back. Staying the same. 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 Was able to run/lift before . Treatment Goals Patient/Caregiver Goals Return to weightlifting/ running, sleep without pain Personal Factors Other Personal Factors That May Effect hip dysplasia as a baby, Therapy/Recovery moderate pubic symphysis dysfunction with both pregnancies PT-OP-C Subjective Start: 03/28/21 13:12 Freq: Status: Active Protocol: Document 07/01/21 08:15 AMB (Rec: 07/01/21 08:41 AMB [id number]) OP-PT Subjective Patient Comments Patient Comments Antonella is wanting to test her back a little and see how it does tonight, in prep for her MD appt to be able to tell if her back is truly improving or not. PT-OP-J Posture/Palpation/Skin Start: 04/15/21 09:34 Freq: Status: Active Protocol: Document 04/15/21 08:15 AMB (Rec: 04/15/21 10:07 AMB [email or web address]) Palpation Assessment Location One Palpation Location pelvis/back/abdomen Palpation Details 2 finger width diastasis recti above umbilicus, 1.5 below. L ASIS and medial malleolus appear high in supine. Tightness at Bilateral QL, iliopsoas and IT bands. PT-OP-M Strength Start: 04/15/21 09:34 Freq: Status: Active Protocol: Document 04/15/21 08:15 AMB (Rec: 04/15/21 10:07 AMB [email or web address]) Hip Strength Hip Manual Muscle Testing Right Flexion (L2) 5 Normal Extension (S1) 5 Normal Abduction 5 Normal Left Flexion (L2) 5 Normal Extension (S1) 5 Normal Abduction 5 Normal PT-OP-Q Treatments Start: 03/28/21 13:12 Freq: Status: Active Protocol: Document 07/01/21 08:15 AMB (Rec: 07/01/21 09:36 AMB [id number]) Therapeutic Exercises Supine Exercises 3 Supine Exercise Name double knee to chest with OP Reps/Minutes 30x2 2 Supine Exercise Name lower trunk rotation Reps/Minutes 10 1 Supine Exercise Name hooklying TA swith pelvic tilt Reps/Minutes 10 Sidelying Exercises 1 Sidelying Exercise Name full standard plank Reps/Minutes 30x2 side plank Sidelying Exercise Name modified on knees Standing Exercises lunges Standing Exercise Name lateral Reps/Minutes 5 Comments did feel some discomfort with these squats Standing Exercise Name with cues to press through heels to engage glutes Reps/Minutes 10 half florian side bend Reps/Minutes 2' Comments modified with WBOS Other Exercises 2 Other Exercise Name side plank Reps/Minutes 2x10 1 Other Exercise Name cat cow with focus on low back quadruped Other Exercise Name LE ext, and ER Reps/Minutes 2x10 Comments bent knee to decrease hamstring madisyn pose Reps/Minutes 30x4 Comments c hips wide, toes in, pillow between thighs and core Manual Therapy Treatment Soft Tissue Mobilization L hip/low back Body Location low back Mobilization Type Myofascial Release,Sustained Pressure,Trigger Point Release Intensity/Depth Moderate Body Position Sidelying PT-OP-T Assessment and Plan Start: 03/28/21 13:12 Freq: Status: Active Protocol: Document 07/01/21 08:15 AMB (Rec: 07/01/21 09:36 AMB [id number]) Physical Therapy Assessment Assessment Summary Assessment Antonella is doing well again, and seemed to tolerate an increase exercise, with the verbal instructions to wait to see how she does tonight and tomorrow and if no increase in pain can resume some light exercise, not weight lifting yet. Physical Therapy Plan Next Visit Focus/Plan Next Note Type Treatment Note Next Visit Plan Re-evaluate HEP
--- NOTE | 2021-07-08 09:26 | PT.OTN ---
Current Diagnoses Pain in left hip (07/08/21) Pelvic and perineal pain (07/08/21) Physical Therapy Treatment Note PT-OP-A Visit Information Start: 03/28/21 13:12 Freq: Status: Active Protocol: Document 07/08/21 08:15 AMB (Rec: 07/08/21 08:56 AMB [id number]) Out-Patient Physical Therapy Visit Information Visit Information Visit Type Treatment Note Visit Start Time 08:15 Visit Stop Time 09:00 Total Visit Minutes 45 Visit Number 13 PT-OP-B Current Condition Start: 03/28/21 13:12 Freq: Status: Active Protocol: Document 04/15/21 08:13 AMB (Rec: 04/15/21 09:33 AMB [id number]) Current Condition History of Current Condition Onset Date 04/14 Current Complaints hip pain, neck pain History of Current Condition Hips not tolerating running or weight lifting, stiffness and pain when waking. 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 Running hurts after a couple miles, weight lifting light weights only, and then can feel it next day in SI/low back. Staying the same. 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 Was able to run/lift before . Treatment Goals Patient/Caregiver Goals Return to weightlifting/ running, sleep without pain Personal Factors Other Personal Factors That May Effect hip dysplasia as a baby, Therapy/Recovery moderate pubic symphysis dysfunction with both pregnancies PT-OP-C Subjective Start: 03/28/21 13:12 Freq: Status: Active Protocol: Document 07/08/21 08:15 AMB (Rec: 07/08/21 08:56 AMB [id number]) OP-PT Subjective Patient Comments Patient Comments I can get through my day, and am no longer having to take medication. Central back pain did flare up after last appointment, L sided pain that she came to PT for is minimal . PT-OP-J Posture/Palpation/Skin Start: 04/15/21 09:34 Freq: Status: Active Protocol: Document 04/15/21 08:15 AMB (Rec: 04/15/21 10:07 AMB [email or web address]) Palpation Assessment Location One Palpation Location pelvis/back/abdomen Palpation Details 2 finger width diastasis recti above umbilicus, 1.5 below. L ASIS and medial malleolus appear high in supine. Tightness at Bilateral QL, iliopsoas and IT bands. PT-OP-M Strength Start: 04/15/21 09:34 Freq: Status: Active Protocol: Document 04/15/21 08:15 AMB (Rec: 04/15/21 10:07 AMB [email or web address]) Hip Strength Hip Manual Muscle Testing Right Flexion (L2) 5 Normal Extension (S1) 5 Normal Abduction 5 Normal Left Flexion (L2) 5 Normal Extension (S1) 5 Normal Abduction 5 Normal PT-OP-Q Treatments Start: 03/28/21 13:12 Freq: Status: Active Protocol: Document 07/08/21 08:15 AMB (Rec: 07/08/21 09:22 AMB [email or web address]) Therapeutic Exercises Supine Exercises 3 Supine Exercise Name double knee to chest with OP Reps/Minutes 30x2 2 Supine Exercise Name lower trunk rotation Reps/Minutes 10 1 Supine Exercise Name hooklying TA swith pelvic tilt Reps/Minutes 10 Comments added bent leg lift Prone Exercises 1 Prone Exercise Name prone press up Reps/Minutes 10 Other Exercises madisyn pose Reps/Minutes 30x4 Comments c hips wide, toes in, pillow between thighs and core PT-OP-T Assessment and Plan Start: 03/28/21 13:12 Freq: Status: Active Protocol: Document 07/08/21 08:15 AMB (Rec: 07/08/21 08:56 AMB [id number]) Physical Therapy Assessment Goals Two Impairment Pain Short Term Goal (STG) Antonella will sleep for 6 hours with 2/10 pain or less. STG Duration MET C[employer] Pump Tender Goal (LTG) Antonella will be able to lunge forward or laterally without hip/pubic symphysis or SI pain . LTG Duration MET One Impairment Pt unable to exercise at prior level of function Short Term Goal (STG) Antonella will be independent with her HEP of core and LE stabilization training. STG Duration MET Skilled Nursing Goal (LTG) Antonella will return to weightlifting with 2/10 pain or less. LTG Duration NOT MET Assessment Summary Assessment 1/10 pain currently, increased to 3-4/10 pain after last Pt session, didn't hurt during, but did the next few days. Overall Antonella's pain that she was evaluated for has improved well. She did experience a flare up in new onset central low back pain without radiation about a month ago, and that has been improving, but she has not been able to return to her previous level of function quite yet. Encouraged to continue with HEP and follow up with her PCP . If pain is not improving in in the next 2-3 months with current exercise program would be welcome to return. Physical Therapy Plan Discharge Physical Therapy Discharge Comments pt to follow up with MD, can return if not progressing with HEP.
== END 2021-08-26 08:55 ==
LOC: PHYS 08:15
PROVIDERS: Family Provider Family Medicine; PCP Family Medicine; Referring Provider Family Medicine; Visit Provider Family Medicine
DX: R10.2 Pelvic and perineal pain (principal); M25.552 Pain in left hip
CPT/HCPCS: 97110; 97140; 97161

== ENCOUNTER 2022-12-22 17:46 | Emergency (ER) | payer OTHER, MEDICAID, SELFPAY ==
[2022-12-22 17:48] VITALS: BP 132/60; PULSE 69; RESP 16; TEMP 36.5; O2SAT 96; BMI 22.4
--- NOTE | 2022-12-22 18:16 | ED.BACK ---
HPI - Back Pain/Injury General Chief Complaint: Back Pain/Injury Stated Complaint: back pain Time Seen by Provider: 12/22/22 18:01 Source: patient History of Present Illness HPI Narrative: 37F nonsmoker with history of back pain for quite sometime presents with low back pain for the past 4 days. She states she tweaked it 4 days ago when stretching. She admits that the pain is significantly worse when she moves and is making it hard for her to sleep. She admits to some radiation from her low back around into her hips but denies any pain down either leg. She has no numbness, tingling or weakness. She denies any loss of control of bowel or bladder. She denies any traumatic injury. She denies fever, lower extremity weakness or use of anticoagulation. She states that she has been having trouble off and on with her back since the delivery of her child 3 years ago. She is taken various medication approaches including muscle relaxers and pain meds as well as anti-inflammatories but states she is never tried steroids or gabapentin. She has been to physical therapy and still experiences little relief. Related Data Home Medications Medication Instructions Recorded Confirmed prenat.vits,tobias,[id number]-splbm 1 tab PO DAILY 09/20/19 05/21/22 krill oil 500 mg capsule mg PO 10/05/19 05/21/22 lactobacillus combination no.8 3 3,000 mmu cells PO DAILY 10/05/19 05/21/22 billion cell capsule (Adult Probiotic) Vitamin D 6,000 unit PO DAILY 08/14/20 05/21/22 Previous Rx's Medication Instructions Recorded acetaminophen 325 mg tablet 650 mg PO Q6HR PRN Pain, Mild 04/15/20 (1-3) 14 days #100 tabs ibuprofen 600 mg tablet 600 mg PO Q6HR PRN Pain, Mild 04/15/20 (1-3) 14 days #60 tabs bupropion HCl 75 mg tablet 75 mg PO DAILY #90 tabs 03/19/22 sertraline 150 mg capsule 150 mg PO DAILY #90 caps 05/21/22 cyclobenzaprine 10 mg tablet 10 mg PO TID PRN muscle spasm #20 12/22/22 tabs ketorolac 10 mg tablet 10 mg PO Q6H PRN pain #30 tabs 12/22/22 prednisone 20 mg tablet 20 mg PO DAILY #5 tabs 12/22/22 Allergies Allergy/AdvReac Type Severity Reaction Status Date / Time No Known Drug Allergies Allergy Verified 12/22/22 17:48 Review of Systems Review of Systems Narrative: GENERAL: Denies chills, fatigue, malaise, fever, sweats. HEENT: Denies sinus pain, ear pain, sore throat, difficulty swallowing, dizziness. RESPIRATORY: Denies dyspnea, cough, wheezing, hemoptysis, sputum. CARDIOVASCULAR: Denies chest pain, palpitations, orthopnea, edema, GASTROINTESTINAL: Denies nausea, vomiting, abdominal pain, diarrhea, constipation, melena. : Denies dysuria, frequency, incontinence, hematuria, urinary retention. MUSCULOSKELETAL: See HPI SKIN: Denies rash, skin lesions, or other NEUROLOGIC: See HPI PSYCHIATRIC: No concerning psychosocial issues. 12 point review of systems is negative except for those stated above Patient History Medical History Acute neck pain Cervical somatic dysfunction Chronic right-sided low back pain without sciatica Chronic thoracic back pain Closed fracture of distal phalanx of left little finger Coccyalgia Cranial somatic dysfunction Depression HSV-1 (herpes simplex virus 1) infection Pelvic somatic dysfunction depression Segmental and somatic dysfunction of abdomen and other regions Segmental and somatic dysfunction of lower extremity Segmental and somatic dysfunction of lumbar region Segmental and somatic dysfunction of rib cage Segmental and somatic dysfunction of sacral region Short leg syndrome, left, acquired Stiff neck (spontaneous vaginal delivery) Thoracic region somatic dysfunction Surgical History [place] teeth extracted Family History Mother Sarcoidosis Father Unknown whether patient has any health problems Grandfather Menieres disease Pituitary tumor Grandmother Skin cancer (melanoma) Family/Other Skin cancer (melanoma) Brother Anxiety Social History marital status: unmarried,single education level: college occupational status: employed current occupational exposures/hazards: No special kirill needs: No Smoking Status: Never smoker second hand exposure: No alcohol intake: current substance use type: does not use Smoking Status: Never smoker Substance Use Type: does not use Exam Narrative Exam Narrative: GENERAL: [37] year old patient appears stated age. Well-developed patient, in mild distress. HEAD: Atraumatic. Normocephalic. EYES: Pupils equal round and reactive. Extraocular motions intact. No scleral icterus. No injection or drainage. ENT: Nose without bleeding, purulent drainage. Throat without erythema, tonsillar hypertrophy or exudate. Airway patent. NECK: Trachea midline. Non tender CARDIOVASCULAR: Regular rate and rhythm without murmurs, gallops, or rubs. RESPIRATORY: Clear to auscultation. Breath sounds equal bilaterally. No wheezes, rales, or rhonchi. GASTROINTESTINAL: Abdomen soft, non-tender, nondistended. EXTREMITIES: No edema or joint tenderness. BACK: mixing machine tender cork rod but free of any obvious external abnormalities. Patient exam notes decreased range of motion and muscle spasm, but no CVA tenderness, or vertebral point tenderness. There are no symptoms of cauda equina such as saddle anesthesia, and decreased reflexes, decreased sensation or strength. NEURO: AOx3. SKIN: No rash or erythema of visible areas Initial Vital Signs Initial Vital Signs: Vital Signs Temperature 97.7 F 12/22/22 17:48 Pulse Rate 69 12/22/22 17:48 Respiratory Rate 16 12/22/22 17:48 Blood Pressure 132/60 12/22/22 17:48 Pulse Oximetry 96 12/22/22 17:48 Oxygen Delivery Method Room Air 12/22/22 17:48 Course Orders Ordered: ED Orders 12/22/22 18:36 XR sacroiliac joint min 3V Stat Discontinued Medications Cyclobenzaprine HCl (Cyclobenzaprine 10 Mg Prepack) 1 bottle MISC SEEINSTR ONE Stop: 12/22/22 20:18 Last Admin: 12/22/22 20:25 Dose: 1 bottle Documented By: JANET Gabapentin (Gabapentin 300 Mg Capsule) 300 mg PO NOW ONE Stop: 12/22/22 20:18 Last Admin: 12/22/22 20:24 Dose: 300 mg Documented By: JANET Ketorolac Tromethamine (Ketorolac 30 Mg/Ml Vial) 30 mg IM NOW ONE Stop: 12/22/22 20:18 Last Admin: 12/22/22 20:24 Dose: 30 mg Documented By: JANET Vital Signs Vital signs: Vital Signs - 8 hr 12/22/22 17:48 12/22/22 20:19 Temperature 97.7 F Pulse Rate 69 65 Respiratory Rate 16 Blood Pressure 132/60 121/56 L Pulse Oximetry 96 100 Oxygen Delivery Method Room Air Room Air MDM - Back Pain/Injury Lab Data Labs: Point of Care Testing Test Results Negative Urine Dip Bedside Urine Glucose Negative Bedside Urine Bilirubin - Negative Bedside Urine Ketone - Negative Urine Specific [place] 1.020 Bedside Urine Occult Blood - Negative Bedside Urine pH 6.0 Bedside Urine Protein - Negative Bedside Urine Urobilinogen - Negative Bedside Urine Nitrite - Negative Bedside Urine Leukocytes - Negative Esterase MDM Narrative Medical decision making narrative: [37] year old patient presents with ongoing but worsening low back pain Multiple etiologies for patient's symptoms considered including, but not limited to: [SI joint dysfunction versus muscle spasm versus lumbar radiculopathy versus epidural hematoma versus epidural abscess versus other] Prior Charts reviewed in our EMR Primary Historian: patient Imaging reviewed: Sacral x-ray without acute findings Patient's symptoms improved over duration of stay with above-stated therapies. Multiple etiologies of back pain considered including; Epidural abscess, cauda equina, mass occupying lesion, and other considered, however, thankfully there are no red flags to suggest the presence of a neurosurgical emergency. Given her longstanding history we did discuss various options and agreed that we will try gabapentin with the addition of some previously used medications in the past. She wanted to hold off on steroids for now because there is a strong reaction to steroids from other family members. I did send a prescription in case she changes her mind. I encouraged close follow-up, return for worsening symptoms and included contact information for both Dr. Oconnell and Dr. Childs should she wish to pursue orthopedic consultation Findings and discharge diagnosis discussed with patient/family followed by verbalization of understanding Return precautions discussed with patient/family whom verbalize understanding of diagnosis and plan Discharge Plan Departure Patient Disposition: Home Clinical Impression: Chronic lumbar pain Instructions: DI for Low Back Pain Activity Restrictions/Additional Instructions: *You have been diagnosed with [ acute on chronic low back pain. As we discussed your history and physical exam is reassuring and there are no elements of your story or exam that suggest a neurosurgical emergency is present. Furthermore the x-ray of your SI joints shows no significant or obvious abnormality.] *What to do: *Please continue to take your regular medications as directed. [x ] New medication prescriptions sent to your pharmacy: [ [facility]] [ ] New medication written as a paper prescription [ ] No new medications given *Please follow up with your primary care provider in 2-3 days, call for an appointment. Let them know you were seen in the Emergency Department and that we ask that you be seen in follow up. We will electronically transmit a record of today's note if your PCP is in our system. As we discussed it will be reasonable to re-evaluate in a few days to see your response to these new medications. After which Dr. Lee will help decide if advanced imaging such as an MRI are indicated * also, as we discussed I have included the contact information for both Dr. Oconnell and Dr. Levine who are the local back pain experts here at [facility]. *Return to Emergency Department if you should have any new, worsening or concerning symptoms, such as [fever greater than 101 F, shaking chills, worsening pain, persistent vomiting or other bothersome symptoms] Prescriptions: New cyclobenzaprine 10 mg tablet 10 mg PO TID PRN (Reason: muscle spasm) Qty: 20 0RF prednisone 20 mg tablet 20 mg PO DAILY Qty: 5 0RF Rx Instructions: administer with food or milk ketorolac 10 mg tablet 10 mg PO Q6H PRN (Reason: pain) Qty: 30 0RF No Action krill oil 500 mg capsule PO Adult Probiotic 3 billion cell capsule 3,000 mmu cells PO DAILY bupropion HCl 75 mg tablet 75 mg PO DAILY Qty: 90 3RF Rx Instructions: administer 6 hours apart prenat.vits,tobias,res-afvy-bmybx Tablet 1 tab PO DAILY sertraline 150 mg capsule 150 mg PO DAILY Qty: 90 1RF Vitamin D 6,000 unit PO DAILY acetaminophen 325 mg Tablet 650 mg PO Q6HR PRN (Reason: Pain, Mild (1-3)) 14 Days Qty: 100 1RF ibuprofen 600 mg Tablet 600 mg PO Q6HR PRN (Reason: Pain, Mild (1-3)) 14 Days Qty: 60 1RF Referrals: Luciano Lee DO [Primary Care Provider] - Leonard Oconnell DO [Physician] - Caron Childs MD [Physician] - Stand Alone Forms: Patient Portal/API
--- NOTE | 2022-12-22 18:36 | DI.RAD.S_ITS ---
PROCEDURE: XR SACROILIAC JOINT MIN 3V INDICATIONS: pain, possible injury TECHNIQUE: 3 views of the sacroiliac joints were acquired. COMPARISON: None. FINDINGS: Bones: No bony erosions or ankylosis. No suspicious bony lesions. No fractures. Soft tissues: Overlying bowel gas pattern is normal. No suspicious soft tissue densities. There is an IUD in pelvis. IMPRESSION: Normal SI joints. Dictated by: Korina Meredith M.D. on 12/22/2022 at 19:53 Approved by: Korina Meredith M.D. on 12/22/2022 at 19:54
[2022-12-22 20:19] VITALS: BP 121/56; PULSE 65; O2SAT 100
[2022-12-22] MEDS: GABAPENTIN 300 MG CAPSULE PO (20:24)
[2022-12-22] MEDS: KETOROLAC 30 MG/ML VIAL IM (20:24)
[2022-12-22] MEDS: CYCLOBENZAPRINE 10 MG PREPACK 1 BOTTLE MISC (20:25)
--- NOTE | 2022-12-23 09:55 | PC.NURSE ---
Received call from Antonella inquiring about a prescription for Gabapentin, pt was understanding one was to be sent to pharmacy. Dr. Reynoso not available, encouraged pt to reach out to PCP. Pt states she will be following up with PCP.
== END 2022-12-22 20:48 | disposition home or self-care (01) ==
PROVIDERS: Emergency Provider Emergency Medicine; Family Provider Family Medicine; PCP Family Medicine
DX: M54.50 Low back pain, unspecified (principal); G89.29 Other chronic pain
CPT/HCPCS: 72202; 81003; 81025; 96372; 99283; J1885

== ENCOUNTER 2024-07-31 17:27 | Emergency (ER) | payer OTHER, SELFPAY ==
[2024-07-31] VITALS (8 sets, daily range): BP systolic 116–150; BP diastolic 57–76; PULSE 61–91; RESP 16; TEMP 37; O2SAT 95–98; BMI 22.2
[2024-07-31 18:21] LABS: Appearance Urine UA CLOUDY; Bilirubin Urine UA NEGATIVE (NEGATIVE); Color Urine UA RED; Glucose Urine UA NEGATIVE (Negative); Ketones Urine UA NEGATIVE (NEGATIVE); Leukocyte Esterase Urine UA 2+ (NEGATIVE); Nitrite Urine UA NEGATIVE (Negative); Occult Blood Urine UA 3+ (Negative); Protein Urine UA 2+ (Negative); Urobilinogen Urine UA 0.2 E.U./dL (0.2)
[2024-07-31 18:23] LABS: Bacteria Urine Few (2-10); Culture Indicated Urine Specimen Cultured; RBC Urine >100/HPF (0-5/HPF); Squamous Epithelial Cell Urine 0-1 /HPF (0-5/HPF); Urine Volume 10mL (spun); WBC Urine 10-30/HPF (0-5/HPF)
[2024-07-31] MEDS: ACETAMINOPHEN 325 MG TABLET 975 MG PO (22:14)
--- NOTE | 2024-07-31 22:33 | ED.GENADULT ---
HPI - General Adult General Chief complaint: Urogenital-Female Stated complaint: unrinary problem Time Seen by Provider: 07/31/24 21:53 Source: patient Mode of arrival: Ambulatory History of Present Illness HPI narrative: 38-year-old female with history of dysuria and frequency of urination 9 days ago, seemed to be feeling better, without specific treatment, now with a couple of days of increasing urinary frequency and painful urination. No fevers or chills. No nausea or vomiting. No anterior abdominal discomfort that is new. No flank area discomfort. No recent exposure to antibiotics. Related Data Home Medications Medication Instructions Recorded Confirmed Vitamin D 6,000 unit PO DAILY 08/14/20 01/21/23 Previous Rx's Medication Instructions Recorded sertraline 50 mg tablet 150 mg (3 x 50 mg) PO DAILY #270 03/14/24 tabs bupropion HCl 150 mg 24 hr tablet, 150 mg PO QAM #90 tabs 05/12/24 extended release cephalexin 500 mg capsule 500 mg PO QID 7 days #28 caps 07/31/24 phenazopyridine 200 mg tablet 200 mg PO TID PRN pain #10 tabs 07/31/24 (Pyridium) Allergies Allergy/AdvReac Type Severity Reaction Status Date / Time No Known Drug Allergies Allergy Verified 07/31/24 17:53 Patient History Medical History (Updated 07/31/24 @ 22:39 by Alex Collins MD) Prediabetes Iron deficiency anemia Premenstrual dysphoria Somatic dysfunction of lower extremity Cervical radiculopathy Acute exacerbation of chronic low back pain Coccyalgia Chronic thoracic back pain Chronic right-sided low back pain without sciatica Depression Cranial somatic dysfunction Segmental and somatic dysfunction of rib cage Thoracic region somatic dysfunction Cervical somatic dysfunction Acute neck pain Stiff neck depression Segmental and somatic dysfunction of abdomen and other regions Short leg syndrome, left, acquired Segmental and somatic dysfunction of lower extremity Segmental and somatic dysfunction of sacral region Segmental and somatic dysfunction of lumbar region Pelvic somatic dysfunction Closed fracture of distal phalanx of left little finger (spontaneous vaginal delivery) HSV-1 (herpes simplex virus 1) infection Surgical History [place] teeth extracted Family History Mother Sarcoidosis Father Unknown whether patient has any health problems Grandfather Menieres disease Pituitary tumor Grandmother Skin cancer (melanoma) Family/Other Skin cancer (melanoma) Brother Anxiety Social History marital status: unmarried,single education level: college occupational status: employed current occupational exposures/hazards: No special kirill needs: No Smoking Status: Never smoker second hand exposure: No alcohol intake: current substance use type: does not use Smoking Status: Never smoker Exam Narrative Exam Narrative: GENERAL: Well-developed patient, in mild distress. HEAD: Atraumatic. Normocephalic. EYES: Pupils equal round and reactive. Extraocular motions intact. No scleral icterus. No injection or drainage. ENT: Nose without bleeding, purulent drainage. Throat without erythema, tonsillar hypertrophy or exudate. Airway patent. NECK: Trachea midline. Non tender CARDIOVASCULAR: Regular rate and rhythm without murmurs, gallops, or rubs. RESPIRATORY: Clear to auscultation. Breath sounds equal bilaterally. No wheezes, rales, or rhonchi. GASTROINTESTINAL: Abdomen soft, non-tender, nondistended. EXTREMITIES: No edema or joint tenderness. BACK: Nontender without deformity or crepitance. No flank tenderness. NEURO: AOx3. Motor functions grossly nonfocal SKIN: No rash or erythema of visible areas Initial Vital Signs Initial Vital Signs: Vital Signs Temperature 98.6 F 07/31/24 17:49 Pulse Rate 91 H 07/31/24 17:49 Respiratory Rate 16 07/31/24 17:49 Blood Pressure 143/63 H 07/31/24 17:49 Pulse Oximetry 97 07/31/24 17:49 Oxygen Delivery Method Room Air 07/31/24 17:49 Course Orders Ordered: Discontinued Medications Acetaminophen (Acetaminophen 325 Mg Tablet) 975 mg PO NOW ONE Stop: 07/31/24 22:07 Last Admin: 07/31/24 22:14 Dose: 975 mg Documented By: RITU Cephalexin HCl (Cephalexin 250 Mg Capsule) 500 mg PO NOW ONE Stop: 07/31/24 22:40 Last Admin: 07/31/24 22:46 Dose: 500 mg Documented By: CHRISTINE Phenazopyridine HCl (Phenazopyridine 100 Mg Tablet) 200 mg PO NOW ONE Stop: 07/31/24 22:40 Last Admin: 01/06/25 22:46 Dose: 200 mg Documented By: CHRISTINE Vital Signs Vital signs: Vital Signs - 8 hr 07/31/24 21:00 07/31/24 21:24 07/31/24 21:26 Pulse Rate 81 71 Blood Pressure 124/58 L 150/76 H Pulse Oximetry 98 96 Oxygen Delivery Method Room Air 07/31/24 21:26 07/31/24 21:30 07/31/24 21:30 Pulse Rate 71 65 Blood Pressure 127/68 Pulse Oximetry 98 97 Oxygen Delivery Method 07/31/24 22:00 07/31/24 22:00 07/31/24 22:30 Pulse Rate 61 63 Blood Pressure 116/57 L Pulse Oximetry 96 95 Oxygen Delivery Method 07/31/24 22:30 07/31/24 22:43 Pulse Rate Blood Pressure 126/60 128/64 Pulse Oximetry Oxygen Delivery Method Medical Decision Making Lab Data Lab results reviewed: Yes I reviewed the patient's lab results. Lab results narrative: Urinalysis suspicious for infection, urine culture sent by protocol Labs: Lab Results 07/31/24 Range/Units 17:55 Urine Color Red Urine Appearance Cloudy Urine pH 6.0 (4.5-8.0) Ur Specific [place] 1.020 (1.000-1.035) Urine Protein 2+ H (Negative) Urine Glucose (UA) Negative (Negative) g/dL Urine Ketones Negative (NEGATIVE) Urine Occult Blood 3+ H (Negative) Urine Nitrate Negative (Negative) Urine Bilirubin Negative (NEGATIVE) Urine Urobilinogen 0.2 (0.2) E.U./dL Ur Leukocyte Esterase 2+ H (NEGATIVE) Urine RBC >100/hpf H (0-5/HPF) Urine WBC 10-30/hpf H (0-5/HPF) Ur Squamous Epith Cells 0-1 /hpf (0-5/HPF) Urine Bacteria Few (2-10) H (None) Ur Culture Indicated? Specimen cultured Vol Urine Centrifuged 10ml (spun) MDM Narrative Medical decision making narrative: 38-year-old female with cystitis symptoms, no fever chills, was improving from last week now with a couple of days of increasing urinary frequency, no recent antibiotics. Afebrile, sirs screen negative. No CVA tenderness. No known drug allergies. First dose oral cephalexin, 1st dose Pyridium given in the emergency department. Prescriptions for these medication course sent to her pharmacy. Encouraged to take plenty of fluids. Tylenol as needed for additional discomfort. Discharged home with family. Return precautions discussed. Discharge Plan Departure Patient Disposition: Home Clinical Impression: Urinary tract infection Instructions: DI for Urinary Tract Infection (UTI) Activity Restrictions/Additional Instructions: Painful and frequent urination last week that seemed to be improving, now recurrent for the last couple of days. No fever on triage. Urinalysis suspicious for infection, urine culture by protocol was sent by laboratory services. We will start antibiotics with 1st dose cephalexin, further antibiotics sent to your pharmacy. Pyridium can help with discomfort as well in the urinary tract system, can stain your clothing however, but useful for the 1st few days as well, 1st dose in the emergency department, additional sent to your pharmacy to take if needed. Tylenol as needed for additional pain control. Drink plenty of oral fluids. Recheck with your regular doctor if not improving in the next couple of days. Consider repeat urinalysis check after course of treatment to make sure the infection is completely cleared. Return to this/nearest emergency department for any change worsening symptoms or any concerns prior Prescriptions: New phenazopyridine [Pyridium] 200 mg tablet 200 mg PO TID PRN (Reason: pain) Qty: 10 0RF cephalexin 500 mg capsule 500 mg PO QID 7 Days Qty: 28 0RF No Action sertraline 50 mg tablet 150 mg PO DAILY Qty: 270 3RF bupropion HCl 150 mg tablet extended release 24 hr 150 mg PO QAM Qty: 90 1RF Vitamin D 6,000 unit PO DAILY Referrals: Luciano Lee DO [Primary Care Provider] - Stand Alone Forms: Patient Portal/API/Survey
[2024-07-31] MEDS: PHENAZOPYRIDINE 100 MG TABLET 200 MG PO (22:46)
[2024-07-31] MEDS: cephALEXin 250 MG CAPSULE 500 MG PO (22:46)
== END 2024-07-31 22:52 | disposition home or self-care (01) ==
PROVIDERS: Emergency Provider Emergency Medicine; Family Provider Family Medicine; PCP Family Medicine
DX: N39.0 Urinary tract infection, site not specified (principal)
CPT/HCPCS: 81001; 87077; 87086; 87186; 99283

== ENCOUNTER → 2024-10-02 09:12 | Outpatient (CLI) | payer OTHER, SELFPAY ==
[2024-10-02 10:13] LABS: Add Manual Diff / Slide Review NO; Basophils Absolute Auto 0 /uL (0-100); Basophils Percent Auto 0.8 % (0-2); Eosinophils Absolute Auto 200 /uL (0-450); Eosinophils Percent Auto 3.5 % (2-4); Hematocrit 42.8 % (36-46); Hemoglobin 14.4 g/dL (12.0-16.0); Lymphocytes Absolute Auto 1800 /uL (1100-4500); Lymphocytes Percent Auto 31.7 % (25-40); Mean Corpuscular HGB Conc 33.7 % (30-36); Mean Corpuscular Hemoglobin 29.7 PG (26-34); Mean Corpuscular Volume 87.9 fL (80-100); Monocytes Absolute Auto 500 /uL (0-900); Monocytes Percent Auto 9.2 % (3-14); Neutrophils Absolute Auto 3100 /uL (1500-7000); Neutrophils Percent Auto 54.8 % (50-75); Platelet Count 198 X10^3/uL (150-400); Red Blood Cell Count 4.86 X10^6/uL (4.0-5.2); Red Cell Distribution Width 12.9 % (11.6-14.8); White Blood Cell Count 5.7 X10^3/uL (4.5-11.0)
[2024-10-02 10:24] LABS: Hemoglobin A1C% w Est Avg Glu 4.8 % (4.0-6.0)
[2024-10-02 10:32] LABS: HEMOLYSIS < 15 (0-50); Iron 91 ug/dL (37-170)
[2024-10-02 10:38] LABS: Alanine Aminotransferase 27 IU/L (<35); Albumin 4.6 g/dL (3.5-5.0); Albumin Globulin Ratio 1.8 (1.0-2.8); Alkaline Phosphatase 60 U/L (38-126); Aspartate Aminotransferase 30 IU/L (14-36); BUN Creatinine Ratio 20.3 (6-22); Bilirubin Total 0.9 mg/dL (0.2-1.3); Blood Urea Nitrogen 15 mg/dL (7-17); Calcium 9.5 mg/dL (8.4-10.2); Carbon Dioxide 25 mmol/L (22-32); Chloride 104 mmol/L (98-107); Estimated Glomerular Filt Rate > 60 mL/min (>60); Globulin 2.6 g/dL (1.7-4.1); Glucose 102 mg/dL (70-100); HEMOLYSIS < 15 (0-50); Potassium 4.8 mmol/L (3.4-5.1); Sodium 137 mmol/L (137-145); Total Protein 7.2 g/dL (6.3-8.2)
[2024-10-02 10:44] LABS: Percent Iron Saturation 32 % (15-50); Total Iron Binding Capacity 284 ug/dL (265-497); Transferrin 259 mg/dL (206-381)
== END ==
LOC: LAB 09:13
PROVIDERS: Family Provider Family Medicine; PCP Family Medicine; Referring Provider Family Medicine; Visit Provider Family Medicine
DX: R53.81 Other malaise (principal); R53.83 Other fatigue; R76.8 Other specified abnormal immunological findings in serum; R73.03 Prediabetes; D50.9 Iron deficiency anemia, unspecified
CPT/HCPCS: 36415; 80053; 83036; 83540; 83550; 85025; 86038

== ENCOUNTER 2025-07-06 23:06 | Emergency (ER) | payer OTHER, SELFPAY ==
[2025-07-06 23:51] VITALS: BP 133/68; PULSE 60; RESP 17; TEMP 36.7; O2SAT 97; BMI 23.3
[2025-07-07] VITALS (7 sets, daily range): BP systolic 113–127; BP diastolic 57–71; PULSE 58–69; O2SAT 96–98
--- NOTE | 2025-07-07 00:08 | ED.ABDPAIN ---
HPI - Abdominal Pain General Chief Complaint: Abdominal Pain Stated Complaint: Severe abd pain, main point of pain on Lt side Time Seen by Provider: 07/06/25 23:13 Source: patient Mode of arrival: Ambulatory History of Present Illness HPI narrative: 39-year-old female with history of ovarian cysts, history of single episode prior kidney stone successfully passed, has nontraumatic left lower quadrant discomfort through the day today, not necessarily worse with deep breathing, variably changed with movements changes positions. No diarrhea black stools red stools mucoid stools. No history of colitis or diverticulitis recalled. Not currently on her menses. Not known to be . No recent cough shortness of breath chest pain. Skin rashes or vesicles Related Data Previous Rx's ?Medication ?Instructions ?Recorded gabapentin 300 mg capsule 300 mg PO BEDTIME #90 caps 02/16/25 sertraline 100 mg tablet 150 mg (1.5 x 100 mg) PO DAILY 02/16/25 #135 tabs bupropion HCl 150 mg 24 hr tablet, 150 mg PO QAM #90 tabs 04/26/25 extended release hydrocodone 5 mg-acetaminophen 325 1 tab PO Q6H PRN pain #10 tabs 07/07/25 mg tablet ondansetron 4 mg disintegrating 4 mg PO Q6H PRN nausea and 07/07/25 tablet vomiting #10 tabs Allergies Allergy/AdvReac Type Severity Reaction Status Date / Time No Known Drug Allergies Allergy Verified 07/06/25 23:50 Patient History Medical History (Updated 07/07/25 @ 02:31 by Alex Collins MD) 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 Fibromyalgia Arm skin lesion, left Upper extremity somatic dysfunction Lateral epicondylitis, right elbow Right leg numbness Leg pain, right Malaise and fatigue Positive KAYLEEN (antinuclear antibody) Prediabetes Iron deficiency anemia Premenstrual dysphoria Somatic dysfunction of lower extremity Cervical radiculopathy Acute exacerbation of chronic low back pain Coccyalgia Chronic thoracic back pain Chronic right-sided low back pain without sciatica Depression Cranial somatic dysfunction Segmental and somatic dysfunction of rib cage Thoracic region somatic dysfunction Cervical somatic dysfunction Acute neck pain Stiff neck depression Segmental and somatic dysfunction of abdomen and other regions Short leg syndrome, left, acquired Segmental and somatic dysfunction of lower extremity Segmental and somatic dysfunction of sacral region Segmental and somatic dysfunction of lumbar region Pelvic somatic dysfunction Closed fracture of distal phalanx of left little finger (spontaneous vaginal delivery) HSV-1 (herpes simplex virus 1) infection Surgical History [place] teeth extracted Family History Mother Sarcoidosis Father Unknown whether patient has any health problems Grandfather Menieres disease Pituitary tumor Grandmother Skin cancer (melanoma) Family/Other Skin cancer (melanoma) Brother Anxiety Social History marital status: unmarried,single education level: college occupational status: employed current occupational exposures/hazards: No special kirill needs: No Smoking Status: Never smoker second hand exposure: No alcohol intake: current substance use type: does not use Smoking Status: Never smoker Exam Narrative Exam Narrative: GENERAL: Well-developed patient, in mild distress. HEAD: Atraumatic. Normocephalic. EYES: Pupils equal round and reactive. Extraocular motions intact. No scleral icterus. No injection or drainage. ENT: Nose without bleeding, purulent drainage. Throat without erythema, tonsillar hypertrophy or exudate. Airway patent. NECK: Trachea midline. Non tender CARDIOVASCULAR: Regular rate and rhythm without murmurs, gallops, or rubs. RESPIRATORY: Clear to auscultation. Breath sounds equal bilaterally. No wheezes, rales, or rhonchi. GASTROINTESTINAL: Mild tenderness left lower quadrant, nondistended, normal bowel tones, no guarding or rebound tenderness EXTREMITIES: No edema or joint tenderness. BACK: Nontender without deformity or crepitance. No flank tenderness. NEURO: AOx3. Motor functions grossly nonfocal. SKIN: No rash or erythema of visible areas Initial Vital Signs Initial Vital Signs: Vital Signs Temperature 98.1 F 07/06/25 23:51 Pulse Rate 60 07/06/25 23:51 Respiratory Rate 17 07/06/25 23:51 Blood Pressure 133/68 07/06/25 23:51 Pulse Oximetry 97 07/06/25 23:51 Oxygen Delivery Method Room Air 07/06/25 23:51 Course Orders Ordered: ED Orders 07/06/25 23:14 Complete Blood Count AUTO DIFF Stat Comprehensive Metabolic Panel Stat Lipase Stat 07/07/25 00:52 US pelvic complete Stat Discontinued Medications Hydrocodone Bitart/Acetaminophen (Hydrocodone/Acet 5/325 Tablet) 1 tab PO NOW ONE Stop: 07/07/25 01:45 Last Admin: 07/07/25 02:33 Dose: 1 tab Documented By: Hydrocodone Bitart/Acetaminophen (Hydrocodone/Acet 5/325 Prepack) 1 bottle MISC DIRECTED ONE Stop: 07/07/25 01:45 Last Admin: 07/07/25 02:33 Dose: 1 bottle Documented By: Hydromorphone HCl (Hydromorphone Hcl 0.5 Mg/0.5 Ml Syringe) 0.5 mg IV NOW ONE Stop: 07/07/25 00:58 Last Admin: 07/07/25 01:13 Dose: 0.5 mg Documented By: LANA Ketorolac Tromethamine (Ketorolac 30 Mg/Ml Vial) 15 mg IV NOW ONE Stop: 07/07/25 00:17 Last Admin: 07/07/25 00:25 Dose: 15 mg Documented By: Ondansetron HCl (Ondansetron 4 Mg/2 Ml Inj) 4 mg IV NOW ONE Stop: 07/07/25 00:17 Last Admin: 07/07/25 00:24 Dose: 4 mg Documented By: Ondansetron HCl (Ondansetron 4 Mg/2 Ml Inj) 4 mg IV NOW ONE Stop: 07/07/25 00:58 Last Admin: 07/07/25 01:14 Dose: 4 mg Documented By: LANA Ondansetron HCl (Ondansetron 4 Mg Odt Prepack) 1 bottle MISC DIRECTED ONE Stop: 07/07/25 01:51 Last Admin: 07/07/25 02:33 Dose: 1 bottle Documented By: Vital Signs Vital signs: Vital Signs - 8 hr 07/06/25 23:51 07/07/25 00:19 07/07/25 00:20 Temperature 98.1 F Pulse Rate 60 69 Respiratory Rate 17 Blood Pressure 133/68 122/63 Pulse Oximetry 97 98 Oxygen Delivery Method Room Air 07/07/25 00:20 07/07/25 00:30 07/07/25 00:30 Temperature Pulse Rate 65 65 Respiratory Rate Blood Pressure 123/71 Pulse Oximetry 97 97 Oxygen Delivery Method 07/07/25 01:00 07/07/25 01:00 07/07/25 01:30 Temperature Pulse Rate 66 Respiratory Rate Blood Pressure 119/58 L 127/58 L Pulse Oximetry 98 Oxygen Delivery Method Room Air 07/07/25 01:30 07/07/25 02:00 07/07/25 02:00 Temperature Pulse Rate 61 59 L Respiratory Rate Blood Pressure 118/58 L Pulse Oximetry 98 96 Oxygen Delivery Method Room Air 07/07/25 02:30 07/07/25 02:30 Temperature Pulse Rate 58 L Respiratory Rate Blood Pressure 113/57 L Pulse Oximetry 97 Oxygen Delivery Method Room Air MDM - Abdominal Pain Lab Data Attestation: I reviewed the patient's lab results. Lab results narrative: White blood cell count 39256, hemoglobin 14.4, platelets adequate. Glucose 117. BUN 18 slight elevation, with creatinine 0.74 normal. Normal serum CO2 and electrolytes. Liver functions and lipase normal. Urine dip negative. Urine hCG negative. 07/07/25 00:03 07/07/25 00:03 Labs: Lab Results 07/07/25 Range/Units 00:03 WBC 10.6 (4.5-11.0) X10^3/uL RBC 4.87 (4.0-5.2) X10^6/uL Hgb 14.4 (12.0-16.0) g/dL Hct 42.1 (36-46) % MCV 86.4 (80-100) fL MCH 29.7 (26-34) PG MCHC 34.3 (30-36) % RDW 12.5 (11.6-14.8) % Plt Count 225 (150-400) X10^3/uL Neut % (Auto) 67.0 (50-75) % Lymph % (Auto) 18.4 L (25-40) % [place] % (Auto) 8.1 (3-14) % Eos % (Auto) 3.7 (2-4) % Baso % (Auto) 2.8 H (0-2) % Neut # (Auto) 7100 H (7474-3061) /uL Lymph # (Auto) 1900 (0488-9721) /uL [place] # (Auto) 900 (0-900) /uL Eos # (Auto) 400 (0-450) /uL Baso # (Auto) 300 H (0-100) /uL Sodium 138 (137-145) mmol/L Potassium 4.0 (3.4-5.1) mmol/L Chloride 105 (98-107) mmol/L Carbon Dioxide 24 (22-32) mmol/L BUN 18 H (7-17) mg/dL Creatinine 0.74 (0.52-1.04) mg/dL Estimated GFR > 60 (>60) mL/min BUN/Creatinine Ratio 24.3 H (6-22) Glucose 117 H (70-99) mg/dL Calcium 9.1 (8.4-10.2) mg/dL Total Bilirubin 0.5 (0.2-1.3) mg/dL AST 28 (14-36) IU/L ALT 23 (<35) IU/L Alkaline Phosphatase 81 (38-126) U/L Total Protein 7.7 (6.3-8.2) g/dL Albumin 4.6 (3.5-5.0) g/dL Globulin 3.1 (1.7-4.1) g/dL Albumin/Globulin Ratio 1.5 (1.0-2.8) Lipase 107 (23-300) U/L Point of care testing: Point of Care Testing Test Results Negative Urine Dip Bedside Urine Glucose Negative Bedside Urine Bilirubin - Negative Bedside Urine Ketone - Negative Urine Specific [place] 1.010 Bedside Urine Occult Blood - Negative Bedside Urine pH 6.0 Bedside Urine Protein - Negative Bedside Urine Urobilinogen - Negative Bedside Urine Nitrite - Negative Bedside Urine Leukocytes - Negative Esterase Imaging Data Ultrasound pelvis: Radiologist's Impression: [address] [address] Ultrasound Report Signed Patient: Antonella Paulson MR#: [id number] : 1985 Acct:[id number] Age/Sex: 39 / F Date of Service: 07/07/25 Loc: ED Accession Number: [id number] Procedure: US pelvic complete Ordering Provider: Alex Collins MD PROCEDURE: US PELVIC COMPLETE INDICATIONS: LLQ/LT FLANK PAIN TECHNIQUE: Real-time scanning was performed of the pelvic organs, with image documentation. Additional endovaginal scanning was necessary due to incomplete visualization of the adnexal and endometrial structures by transabdominal scanning. COMPARISON: [facility], US, US PELVIC COMPLETE, 05/09/2019, 12:06. FINDINGS: Uterus: Uterus is anteverted and normal in size at 8.3 by 4.2 x 5.7 cm. The myometrium is homogeneous. The endometrium measures 1.3 mm combined thickness. Ovaries: The right ovary measures 1.4 x 2.6 x 1.4 cm, with a calculated ovarian volume of 2.6 cc. The left ovary measures 3.7 x 4.4 x 4.1 cm, with a calculated ovarian volume of 35 cc. There is a left ovarian cystic lesion containing internal lacy appearance measuring 4.1 x 3.9 x 3.8 cm. Normal arterial waveforms of the ovaries. Less than 12 follicles can be seen in each ovary. No adnexal masses are seen. Other: Free fluid in the pelvis, greater than expected for physiologic. Left kidney is visualized, without hydronephrosis. IMPRESSION: Complex left ovarian cystic lesion, probably representing a hemorrhagic cyst given appearance. Recommend 6-12 weeks follow-up given left-sided pain. Normal arterial waveforms. Intermittent torsion not excluded. Free fluid in the pelvis, greater than expected for physiologic. This could be reactive or indicate recent rupture of cyst. Visualized portions of the left kidney are unremarkable. No hydronephrosis. We strive to produce accurate, complete, and clear reports of imaging services. To assist us in improving patient care, this report was composed using standard report templates and voice recognition software. Therefore, it may contain abnormal punctuation, insertions and/or omissions. Occasional wrong-word or sound-alike substitutions may occur. Though we review the report and make efforts to correct it, we do recommend that the report be read carefully in proper context to recognize any text inaccuracies. Dictated by: Ernesto Avila M.D. on 07/07/2025 at 2:06 Approved by: Ernesto Avila M.D. on 07/07/2025 at 2:08 [facility] Narrative Medical decision making narrative: 39-year-old female with history of ovarian cysts and single episode of prior kidney stone, has nontraumatic left lower quadrant left pelvic area discomfort through the day today. Afebrile, sirs screen negative. Some mild tenderness to left mid and lower quadrant on examination, nonrigid, normal bowel tones. Labs pending. IV Toradol given at triage, minimal improvement. We will add IV Dilaudid. DDx consider left ovarian cyst, left ureteral stone, colitis, diverticulitis, constipation, musculoskeletal, other. Lab data: White blood cell count 70370, hemoglobin 14.4, platelets adequate. Glucose 117. BUN 18 slight elevation, with creatinine 0.74 normal. Normal serum CO2 and electrolytes. Liver functions and lipase normal. Urine dip negative. Urine hCG negative. We discussed advanced imaging, could do CT scan abdomen and pelvis, but risks of radiation. Consider pelvic ultrasound to see if she has recurrence ovarian cyst, can look for indirect stone evidence left hydro if present should she have a 2nd left ureteral stone. Patient would like to start with ultrasound imaging. Keep NPO. Ultrasound pelvis sono tech preliminary look, left-sided complex appearing cyst noted, no ovarian torsion, left ureter not dilated. Await Radiology report. Patient informed. Ultrasound pelvis, Radiology report. Also describes complex appearing left cyst, some pelvic fluid, consistent with hemorrhagic cyst possible recent hemorrhage. See radiology report. Given Dilaudid after Toradol, some improved symptoms, we will give her homepack oral hydrocodone, she has had this in the past. Copy that printed radiology report provided to patient, with the explanation/discussion. She/ feel comfortable with presumptive diagnosis hemorrhagic cyst, 4 cm diameter, follow up with Gynecology advised, no torsion present at this time, hemodynamically stable, no significant hemorrhage volume. Discharged home with family. Follow up with Gynecology. Return precautions discussed. Discharge Plan Departure Patient Disposition: Home Clinical Impression: Left lower quadrant abdominal pain, Hemorrhagic cyst of left ovary Activity Restrictions/Additional Instructions: History of previous ovarian cyst. History of previous single kidney stone episode. Nontraumatic left-sided abdominal discomfort, no fever at triage. Some tenderness however on examination, particularly in the left lower quadrant. Ultrasound of the pelvis was performed, demonstrated 4 cm diameter complex appearing left ovarian cyst, with some free fluid into the pelvis, but good blood flow to the ovaries, suspicious for hemorrhagic ovarian cyst. Likely this is the cause of your left-sided pain. We did discuss additional advanced imaging such as CT scan of the abdomen and pelvis, likely not worth the risk of radiation at this point, as there seems to be better diagnostic clarity with the ultrasound information now. Pain medications given, symptoms seemed to be improved. Home pack of pain and nausea control medications dispensed. Prescriptions also sent to your requested pharmacy. The diameter of the ovarian cyst is not large enough to usually require gynecology intervention at this size, and likely we will be followed by repeat interval ultrasounds. Contact information provided for money laundering investigator on-call Dr. Angulo, consider calling the office on Tal morning to arrange further follow up. Return earlier to this/nearest emergency department for any change worsening symptoms or any concerns prior. Prescriptions: New hydrocodone-acetaminophen 5-325 mg tablet 1 tab PO Q6H PRN (Reason: pain) Qty: 10 0RF ondansetron 4 mg tablet,disintegrating 4 mg PO Q6H PRN (Reason: nausea and vomiting) Qty: 10 0RF No Action bupropion HCl 150 mg tablet extended release 24 hr 150 mg PO QAM Qty: 90 1RF gabapentin 300 mg capsule 300 mg PO BEDTIME Qty: 90 3RF sertraline 100 mg tablet 150 mg PO DAILY Qty: 135 3RF Referrals: Trinity Angulo DO [Physician, A[facility]IVE [facility] SPECIALIST] Luciano Lee DO [Primary Care Provider, Family Practice] Stand Alone Forms: Patient Portal/API
[2025-07-07 00:14] LABS: Add Manual Diff / Slide Review NO; Hematocrit 42.1 % (36-46); Hemoglobin 14.4 g/dL (12.0-16.0); Lymphocytes Absolute Auto 1900 /uL (1100-4500); Mean Corpuscular HGB Conc 34.3 % (30-36); Mean Corpuscular Hemoglobin 29.7 PG (26-34); Mean Corpuscular Volume 86.4 fL (80-100); Platelet Count 225 X10^3/uL (150-400)
[2025-07-07 00:24] LABS: Alanine Aminotransferase 23 IU/L (<35); Albumin 4.6 g/dL (3.5-5.0); Albumin Globulin Ratio 1.5 (1.0-2.8); Alkaline Phosphatase 81 U/L (38-126); Blood Urea Nitrogen 18 mg/dL (7-17); Calcium 9.1 mg/dL (8.4-10.2); Carbon Dioxide 24 mmol/L (22-32); Chloride 105 mmol/L (98-107); Estimated Glomerular Filt Rate > 60 mL/min (>60); Globulin 3.1 g/dL (1.7-4.1); Glucose 117 mg/dL (70-99); HEMOLYSIS < 15 (0-50); Lipase 107 U/L (23-300); Potassium 4.0 mmol/L (3.4-5.1); Sodium 138 mmol/L (137-145); Total Protein 7.7 g/dL (6.3-8.2)
[2025-07-07] MEDS: ONDANSETRON 4 MG/2 ML INJ IV ×2 (00:24→01:14)
[2025-07-07] MEDS: KETOROLAC 30 MG/ML VIAL 15 MG IV (00:25)
--- NOTE | 2025-07-07 00:52 | DI.US.S_ITS ---
PROCEDURE: US PELVIC COMPLETE INDICATIONS: LLQ/LT FLANK PAIN TECHNIQUE: Real-time scanning was performed of the pelvic organs, with image documentation. Additional endovaginal scanning was necessary due to incomplete visualization of the adnexal and endometrial structures by transabdominal scanning. COMPARISON: [facility], US, US PELVIC COMPLETE, 05/09/2019, 12:06. FINDINGS: Uterus: Uterus is anteverted and normal in size at 8.3 by 4.2 x 5.7 cm. The myometrium is homogeneous. The endometrium measures 1.3 mm combined thickness. Ovaries: The right ovary measures 1.4 x 2.6 x 1.4 cm, with a calculated ovarian volume of 2.6 cc. The left ovary measures 3.7 x 4.4 x 4.1 cm, with a calculated ovarian volume of 35 cc. There is a left ovarian cystic lesion containing internal lacy appearance measuring 4.1 x 3.9 x 3.8 cm. Normal arterial waveforms of the ovaries. Less than 12 follicles can be seen in each ovary. No adnexal masses are seen. Other: Free fluid in the pelvis, greater than expected for physiologic. Left kidney is visualized, without hydronephrosis. IMPRESSION: Complex left ovarian cystic lesion, probably representing a hemorrhagic cyst given appearance. Recommend 6-12 weeks follow-up given left-sided pain. Normal arterial waveforms. Intermittent torsion not excluded. Free fluid in the pelvis, greater than expected for physiologic. This could be reactive or indicate recent rupture of cyst. Visualized portions of the left kidney are unremarkable. No hydronephrosis. We strive to produce accurate, complete, and clear reports of imaging services. To assist us in improving patient care, this report was composed using standard report templates and voice recognition software. Therefore, it may contain abnormal punctuation, insertions and/or omissions. Occasional wrong-word or sound-alike substitutions may occur. Though we review the report and make efforts to correct it, we do recommend that the report be read carefully in proper context to recognize any text inaccuracies. Dictated by: Ernesto Avila M.D. on 07/07/2025 at 2:06 Approved by: Ernesto Avila M.D. on 07/07/2025 at 2:08
[2025-07-07] MEDS: ONDANSETRON 4 MG ODT PREPACK 1 BOTTLE MISC (02:33)
== END 2025-07-07 02:40 | disposition home or self-care (01) ==
PROVIDERS: Emergency Provider Emergency Medicine; Family Provider Family Medicine; PCP Family Medicine
DX: N83.202 Unspecified ovarian cyst, left side (principal)
CPT/HCPCS: 36415; 76830; 76856; 80053; 81003; 81025; 83690; 85025; 93975; 96374; 96375; 96376; 99284; J1171; J1885; J2405